=== PATIENT | female | born 1995 | race Two or more races ===

== ENCOUNTER 2019-01-30 08:03 | Inpatient (IN) | payer SELFPAY ==
[~2019-01-30] VITALS: Ht 157.5 cm; Wt 68.3 kg
[2019-01-30] MEDS ORDERED: IV NORMAL SALINE 1000ML BAG 1,000 ML IV SCH (08:23)
[2019-01-30] MEDS ORDERED: fentaNYL PF VIAL 100 MCG/2 ML VIAL IV ONE ×2 (08:30→10:00)
[2019-01-30] MEDS ORDERED: ONDANSETRON PF 4 MG/2 ML VIAL. IV ONE (08:30)
--- NOTE | 2019-01-30 08:32 | PHYS DOC ---
Adult General Chief Complaint Chief Complaint: FLANK PAIN HPI HPI Patient is a 23 year old female presented ER today for evaluation of right upper quadrant abdominal pain started last night. Patient also complaints of na usea, vomiting, diarrhea. Patient denies any fever, no chill. Patient had no previous medical problem. Patient denied taking any medication. Patient is not , she is not allergic to anything. Review of Systems Review of Systems Constitutional: Denies fever or chills [] Eyes: Denies change in visual acuity, redness, or eye pain [] HENT: Denies nasal congestion or sore throat [] Respiratory: Denies cough or shortness of breath [] Cardiovascular: No additional information not addressed in HPI [] GI: Positive for abdominal pain, nausea, vomiting, diarrhea [] : Denies dysuria or hematuria [] Musculoskeletal: Denies back pain or joint pain [] Integument: Denies rash or skin lesions [] Neurologic: Denies headache, focal weakness or sensory changes [] Endocrine: Denies polyuria or polydipsia [] All other systems were reviewed and found to be within normal limits, except as documented in this note. Current Medications Current Medications Current Medications Medications (Trade) Dose Ordered Sig/Kaykay Start Time Stop Time Status Last Admin Dose Admin Fentanyl Citrate (Fentanyl 2ml Vial) 50 mcg 1X ONCE 01/30/19 08:30 01/30/19 08:45 DC 01/30/19 08:51 50 MCG Ondansetron HCl (Zofran) 8 mg 1X ONCE 01/30/19 08:30 01/30/19 08:45 DC 01/30/19 08:50 8 MG Sodium Chloride 1,000 ml @ 1,000 mls/hr Q1H 01/30/19 08:23 01/30/19 09:22 DC 01/30/19 08:49 1,000 MLS/HR Allergies Allergies Allergies Coded Allergies Type Severity Reaction Last Updated Verified No Known Drug Allergies 01/30/19 No Physical Exam Physical Exam Constitutional: Well developed, well nourished, no acute distress, non-toxic appearance. [] HENT: Normocephalic, atraumatic, bilateral external ears normal, oropharynx moist, no oral exudates, nose normal. [] Eyes: PERRLA, EOMI, conjunctiva normal, no discharge. [] Neck: Normal range of motion, no tenderness, supple, no stridor. [] Cardiovascular:Heart rate regular rhythm, no murmur [] Lungs & Thorax: Bilateral breath sounds clear to auscultation [] Abdomen: Bowel sounds normal, soft, There is RUQ tenderness to palpation, no masses, no pulsatile masses. [] Skin: Warm, dry, no erythema, no rash. [] Back: No tenderness, no CVA tenderness. [] Extremities: No tenderness, no cyanosis, no clubbing, ROM intact, no edema. [] Neurologic: Alert and oriented X 3, normal motor function, normal sensory function, no focal deficits noted. [] Psychologic: Affect normal, judgement normal, mood normal. [] Current Patient Data Vital Signs Vital Signs Date Time Temp Pulse Resp B/P (MAP) Pulse Ox O2 Delivery O2 Flow Rate FiO2 01/30/19 09:30 50 12 93/49 (64) 100 Room Air 01/30/19 08:08 97.6 97.6 Lab Values Laboratory Tests Test 01/30/19 08:08 01/30/19 08:15 01/30/19 08:31 Urine Collection Type Unknown Urine Color Yellow Urine Clarity Turbid Urine pH 5.0 Urine Specific [place] >=1.030 Urine Protein Negative mg/dL (NEG-TRACE) Urine Glucose (UA) Negative mg/dL (NEG) Urine Ketones (Stick) Negative mg/dL (NEG) Urine Blood Large (NEG) Urine Nitrite Negative (NEG) Urine Bilirubin Negative (NEG) Urine Urobilinogen Dipstick 0.2 mg/dL (0.2 mg/dL) Urine Leukocyte Esterase Negative (NEG) Urine RBC 0 /HPF (0-2) Urine WBC 0 /HPF (0-4) Urine Squamous Epithelial Cells Mod /LPF Urine Amorphous Sediment Present /HPF Urine Bacteria 0 /HPF (0-FEW) Urine Mucus Mod /LPF POC Urine HCG, Qualitative Hcg negative (Negative) White Blood Count 14.0 x10^3/uL (4.0-11.0) H Red Blood Count 4.64 x10^6/uL (3.50-5.40) Hemoglobin 13.6 g/dL (12.0-15.5) Hematocrit 39.2 % (36.0-47.0) Mean Corpuscular Volume 84 fL (79-100) Mean Corpuscular Hemoglobin 29 pg (25-35) Mean Corpuscular Hemoglobin Concent 35 g/dL (31-37) Red Cell Distribution Width 12.6 % (11.5-14.5) Platelet Count 375 x10^3/uL (140-400) Neutrophils (%) (Auto) 80 % (31-73) H Lymphocytes (%) (Auto) 15 % (24-48) L Monocytes (%) (Auto) 4 % (0-9) Eosinophils (%) (Auto) 1 % (0-3) Basophils (%) (Auto) 0 % (0-3) Neutrophils # (Auto) 11.2 x10^3uL (1.8-7.7) H Lymphocytes # (Auto) 2.1 x10^3/uL (1.0-4.8) Monocytes # (Auto) 0.5 x10^3/uL (0.0-1.1) Eosinophils # (Auto) 0.2 x10^3/uL (0.0-0.7) Basophils # (Auto) 0.1 x10^3/uL (0.0-0.2) Sodium Level 139 mmol/L (136-145) Potassium Level 3.0 mmol/L (3.5-5.1) L Chloride Level 103 mmol/L (98-107) Carbon Dioxide Level 24 mmol/L (21-32) Anion Gap 12 (6-14) Blood Urea Nitrogen 12 mg/dL (7-20) Creatinine 0.8 mg/dL (0.6-1.0) Estimated GFR (Cockcroft-Gault) 89.7 BUN/Creatinine Ratio 15 (6-20) Glucose Level 118 mg/dL (70-99) H Calcium Level 9.4 mg/dL (8.5-10.1) Total Bilirubin 0.3 mg/dL (0.2-1.0) Aspartate Amino Transferase (AST) 14 U/L (15-37) L Alanine Aminotransferase (ALT) 19 U/L (14-59) Alkaline Phosphatase 91 U/L (46-116) Total Protein 9.1 g/dL (6.4-8.2) H Albumin 4.0 g/dL (3.4-5.0) Albumin/Globulin Ratio 0.8 (1.0-1.7) L Lipase 109 U/L (73-393) Laboratory Tests 01/30/19 08:31 Laboratory Tests 01/30/19 08:31 EKG EKG [] Radiology/Procedures Radiology/Procedures [facility] [address] [place] [address] IMAGING REPORT Signed PATIENT: JAY FOLEY ACCOUNT: [id number] : 1995 LOCATION: ER AGE: 23 SEX: F EXAM STATUS: REG ER ORD. PHYSICIAN: MENA MALCOLM DO REASON: RUQ ABDOMINAL PAIN PROCEDURE: ABDOMEN LTD ABDOMEN LTD History: Right upper quadrant abdominal pain Comparison: None. Findings: Multiple sonographic images of the abdomen are submitted. There is no abnormality of the visualized pancreas. Gallbladder is present, internal echogenicity. Reportedly there is a positive sonographic Guzman's sign. Gallbladder wall is not significantly thickened. Common bile duct is somewhat dilated about 0.7 cm, also small focus of echogenicity internally the which shadows likely due to choledocholithiasis. Right kidney measured 10.1 x 4.7 x 3.7 cm, no hydronephrosis. There is segmental visualization of the inferior vena cava. Hepatic echotexture is within normal limits, no focal hepatic lesion demonstrated. Right lobe of the liver measured 16.2 cm longitudinal. Impression: 1. There is cholelithiasis, reportedly positive sonographic Guzman's sign although no significant gallbladder wall thickening. Common bile duct is dilated about 0.7 cm, suspected choledocholithiasis. Electronically signed by: Kevin Hurt MD (01/30/2019 9:18 AM) [facility] DICTATED and SIGNED BY: KEVIN HURT MD DATE: 01/30/19917 Course & Med Decision Making Course & Med Decision Making Pertinent Labs and Imaging studies reviewed. (See chart for details) [] Dragon Disclaimer Dragon Disclaimer This electronic medical record was generated, in whole or in part, using a voice recognition dictation system. Departure Departure Impression: Primary Impression: Choledocholithiasis Additional Impression: Biliary colic Disposition: 09 ADMITTED INPATIENT Admitting Physician: Lisa Jewell Condition: STABLE Referrals: NO PCP (PCP) Problem Qualifiers MENA MALCOLM DO Jan 30, 2019 08:32
[2019-01-30 08:39] LABS: BASO # 0.1 x10^3/uL (0.0-0.2); BASO % 0 % (0-3); EOS # 0.2 x10^3/uL (0.0-0.7); EOS % 1 % (0-3); HEMATOCRIT 39.2 % (36.0-47.0); HEMOGLOBIN 13.6 g/dL (12.0-15.5); LYMPH # 2.1 x10^3/uL (1.0-4.8); LYMPH % 15 % (24-48); MEAN CORPUSCULAR HEMOGLOBIN 29 pg (25-35); MEAN CORPUSCULAR HGB CONC 35 g/dL (31-37); MEAN CORPUSCULAR VOLUME 84 fL (79-100); MONO # 0.5 x10^3/uL (0.0-1.1); MONO % 4 % (0-9); NEUT # 11.2 x10^3uL (1.8-7.7); NEUT % 80 % (31-73); PLATELET COUNT 375 x10^3/uL (140-400); RED BLOOD COUNT 4.64 x10^6/uL (3.50-5.40); RED CELL DISTRIBUTION WIDTH 12.6 % (11.5-14.5)
[2019-01-30 08:45] LABS: BILIRUBIN,URINE NEGATIVE (NEG); CLARITY,URINE TURBID; COLOR,URINE YELLOW; NITRITE,URINE NEGATIVE (NEG); PROTEIN,URINE NEGATIVE (NEG-TRACE); UROBILINOGEN,URINE 0.2 mg/dL (0.2 mg/dL)
[2019-01-30 08:47] LABS: CALCIUM 9.4 mg/dL (8.5-10.1); CREATININE 0.8 mg/dL (0.6-1.0); GFR 89.7
[2019-01-30 08:53] LABS: ALBUMIN/GLOBULIN RATIO 0.8 (1.0-1.7); TOTAL BILIRUBIN 0.3 mg/dL (0.2-1.0); TOTAL PROTEIN 9.1 g/dL (6.4-8.2)
[2019-01-30 08:55] LABS: BACTERIA,URINE 0 /HPF (0-FEW); RBC,URINE 0 /HPF (0-2); SQUAMOUS EPITHELIAL CELL,UR MOD /LPF; WBC,URINE 0 /HPF (0-4)
[2019-01-30 08:56] LABS: AMORPHOUS SEDIMENT,UR PRESENT /HPF
--- NOTE | 2019-01-30 09:20 | RAD ---
ABDOMEN LTD History: Right upper quadrant abdominal pain Comparison: None. Findings: Multiple sonographic images of the abdomen are submitted. There is no abnormality of the visualized pancreas. Gallbladder is present, internal echogenicity. Reportedly there is a positive sonographic Guzman's sign. Gallbladder wall is not significantly thickened. Common bile duct is somewhat dilated about 0.7 cm, also small focus of echogenicity internally the which shadows likely due to choledocholithiasis. Right kidney measured 10.1 x 4.7 x 3.7 cm, no hydronephrosis. There is segmental visualization of the inferior vena cava. Hepatic echotexture is within normal limits, no focal hepatic lesion demonstrated. Right lobe of the liver measured 16.2 cm longitudinal. Impression: 1. There is cholelithiasis, reportedly positive sonographic Guzman's sign although no significant gallbladder wall thickening. Common bile duct is dilated about 0.7 cm, suspected choledocholithiasis. Electronically signed by: Dariusz Johnson MD (01/30/2019 9:18 AM) [facility]
[2019-01-30] MEDS ORDERED: IV NORMAL SALINE 1000ML BAG 1,000 ML IV ONE (10:00)
--- NOTE | 2019-01-30 11:41 | PDOC1 ---
History and Physical Date of Admission: Date of Admission DATE: 01/30/19 TIME: 11:39 Chief Complaint: Problems: (1) Biliary colic (2) Choledocholithiasis Chief Complain: Severe abdominal pain History of Present Illness: HPI: Patient is a 23 year old female presented ER today for evaluation of right upper quadrant abdominal pain started last night. Patient also complaints of nausea, vomiting, diarrhea. Patient denies any fever, no chill. Patient had no previous medical problem. Patient denied taking any medication. Patient is not , she is not allergic to anything. Past Medical/Surgical History: PMH/PSH: Basically benign Allergies: Allergies: Coded Allergies: No Known Drug Allergies (Unverified , 01/30/19) Family History: Family History: Gallstones Social History: Social Hisoty: She does not drink smoke or take drugs she is Current Medications: Current Medications Current Medications Sodium Chloride 1,000 ml @ 1,000 mls/hr Q1H IV Last administered on 01/30/19at 08:49; Start 01/30/19 at 08:23; Stop 01/30/19 at 09:22; Status DC Ondansetron HCl (Zofran) 8 mg 1X ONCE IV Last administered on 01/30/19at 08:50; Start 01/30/19 at 08:30; Stop 01/30/19 at 08:45; Status DC Fentanyl Citrate (Fentanyl 2ml Vial) 50 mcg 1X ONCE IV Last administered on 01/30/19at 08:51; Start 01/30/19 at 08:30; Stop 01/30/19 at 08:45; Status DC Fentanyl Citrate (Fentanyl 2ml Vial) 50 mcg 1X ONCE IV Last administered on 01/30/19at 10:20; Start 01/30/19 at 10:00; Stop 01/30/19 at 10:01; Status DC Sodium Chloride 1,000 ml @ 1,000 mls/hr 1X ONCE IV Last administered on 01/30at 10:18; Start 01/30/19 at 10:00; Stop 01/30/19 at 10:59; Status DC Ondansetron HCl (Zofran) 4 mg PRN Q8HRS PRN IV NAUSEA/VOMITING; Start 01/30/19 at 10:00; Stop 01/31/19 at 09:59 Fentanyl Citrate (Fentanyl 2ml Vial) 50 mcg PRN Q2HRS PRN IV PAIN; Start 01/30/19 at 10:00; Stop 01/31/19 at 09:59 Sodium Chloride 1,000 ml @ 75 mls/hr [id number] IV ; Start 01/30/19 at 09:53; Stop 01/31/19 at 09:52 Cefazolin Sodium/ Dextrose 50 ml @ 100 mls/hr 1X PREOP IV ; Start 01/30/19 at 11:30; Stop 01/31/19 at 18:00 ROS: Review of Systems Review of System REVIEW OF SYSTEMS: GENERAL: Denies weakness SKIN: No bruising, hair changes or rashes. EYES: No blurred, double or loss of vision. NOSE AND THROAT: No history of nosebleeds, hoarseness or sore throat. HEART: No history of palpitations, chest pain or shortness of breath on exertion. LUNGS: Denies cough, hemoptysis, wheezing or shortness of breath. GASTROINTESTINAL: She complains of severe abdominal pain GENITOURINARY: No history of frequency, urgency, hesitancy or nocturia. NEUROLOGIC: Denies history of numbness, tingling, tremor or weakness. PSYCHIATRIC: No history of panic, anxiety or depression. ENDOCRINE: No history of heat or cold intolerance, polyuria or polydipsia. EXTREMITIES: Denies muscle weakness, joint pain, pain on walking or stiffness. Physical Exam: Vital Signs: Vital Signs Date Time Temp Pulse Resp B/P (MAP) Pulse Ox O2 Delivery O2 Flow Rate FiO2 01/30/19 10:20 12 100 Room Air 01/30/19 10:00 68 90/47 (61) 01/30/19 08:08 97.6 97.6 Physcial Exam: GEN.: No apparent distress. Alert and oriented. HEENT: Head is normocephalic, atraumatic NECK: Supple, no JVD LUNGS: Clear to auscultation without rhonchi or wheezing HEART: RRR, S1, S2 present. Peripheral pulses intact ABDOMEN: Severely tender to palpation with severe pain EXTREMITIES: Without any cyanosis, clubbing, or edema. Pedal pulses intact NEUROLOGIC: Normal speech, normal tone. A&O x 3 PSYCHIATRIC: Normal affect, normal mood. Stable SKIN: No ulcerations or rashes Labs: Labs: Laboratory Tests Test 01/30/19 08:08 01/30/19 08:15 01/30/19 08:31 Urine Collection Type Unknown Urine Color Yellow Urine Clarity Turbid Urine pH 5.0 Urine Specific [place] >=1.030 Urine Protein Negative mg/dL (NEG-TRACE) Urine Glucose (UA) Negative mg/dL (NEG) Urine Ketones (Stick) Negative mg/dL (NEG) Urine Blood Large (NEG) Urine Nitrite Negative (NEG) Urine Bilirubin Negative (NEG) Urine Urobilinogen Dipstick 0.2 mg/dL (0.2 mg/dL) Urine Leukocyte Esterase Negative (NEG) Urine RBC 0 /HPF (0-2) Urine WBC 0 /HPF (0-4) Urine Squamous Epithelial Cells Mod /LPF Urine Amorphous Sediment Present /HPF Urine Bacteria 0 /HPF (0-FEW) Urine Mucus Mod /LPF Bedside Urine HCG, Qualitative Hcg negative (Negative) White Blood Count 14.0 x10^3/uL (4.0-11.0) Red Blood Count 4.64 x10^6/uL (3.50-5.40) Hemoglobin 13.6 g/dL (12.0-15.5) Hematocrit 39.2 % (36.0-47.0) Mean Corpuscular Volume 84 fL (79-100) Mean Corpuscular Hemoglobin 29 pg (25-35) Mean Corpuscular Hemoglobin Concent 35 g/dL (31-37) Red Cell Distribution Width 12.6 % (11.5-14.5) Platelet Count 375 x10^3/uL (140-400) Neutrophils (%) (Auto) 80 % (31-73) Lymphocytes (%) (Auto) 15 % (24-48) Monocytes (%) (Auto) 4 % (0-9) Eosinophils (%) (Auto) 1 % (0-3) Basophils (%) (Auto) 0 % (0-3) Neutrophils # (Auto) 11.2 x10^3uL (1.8-7.7) Lymphocytes # (Auto) 2.1 x10^3/uL (1.0-4.8) Monocytes # (Auto) 0.5 x10^3/uL (0.0-1.1) Eosinophils # (Auto) 0.2 x10^3/uL (0.0-0.7) Basophils # (Auto) 0.1 x10^3/uL (0.0-0.2) Sodium Level 139 mmol/L (136-145) Potassium Level 3.0 mmol/L (3.5-5.1) Chloride Level 103 mmol/L (98-107) Carbon Dioxide Level 24 mmol/L (21-32) Anion Gap 12 (6-14) Blood Urea Nitrogen 12 mg/dL (7-20) Creatinine 0.8 mg/dL (0.6-1.0) Estimated GFR (Cockcroft-Gault) 89.7 BUN/Creatinine Ratio 15 (6-20) Glucose Level 118 mg/dL (70-99) Calcium Level 9.4 mg/dL (8.5-10.1) Total Bilirubin 0.3 mg/dL (0.2-1.0) Aspartate Amino Transf (AST/SGOT) 14 U/L (15-37) Alanine Aminotransferase (ALT/SGPT) 19 U/L (14-59) Alkaline Phosphatase 91 U/L (46-116) Total Protein 9.1 g/dL (6.4-8.2) Albumin 4.0 g/dL (3.4-5.0) Albumin/Globulin Ratio 0.8 (1.0-1.7) Lipase 109 U/L (73-393) Laboratory Tests Test 01/30/19 08:08 01/30/19 08:15 01/30/19 08:31 Urine Collection Type Unknown Urine Color Yellow Urine Clarity Turbid Urine pH 5.0 Urine Specific [place] >=1.030 Urine Protein Negative mg/dL (NEG-TRACE) Urine Glucose (UA) Negative mg/dL (NEG) Urine Ketones (Stick) Negative mg/dL (NEG) Urine Blood Large (NEG) Urine Nitrite Negative (NEG) Urine Bilirubin Negative (NEG) Urine Urobilinogen Dipstick 0.2 mg/dL (0.2 mg/dL) Urine Leukocyte Esterase Negative (NEG) Urine RBC 0 /HPF (0-2) Urine WBC 0 /HPF (0-4) Urine Squamous Epithelial Cells Mod /LPF Urine Amorphous Sediment Present /HPF Urine Bacteria 0 /HPF (0-FEW) Urine Mucus Mod /LPF Bedside Urine HCG, Qualitative Hcg negative (Negative) White Blood Count 14.0 x10^3/uL (4.0-11.0) Red Blood Count 4.64 x10^6/uL (3.50-5.40) Hemoglobin 13.6 g/dL (12.0-15.5) Hematocrit 39.2 % (36.0-47.0) Mean Corpuscular Volume 84 fL (79-100) Mean Corpuscular Hemoglobin 29 pg (25-35) Mean Corpuscular Hemoglobin Concent 35 g/dL (31-37) Red Cell Distribution Width 12.6 % (11.5-14.5) Platelet Count 375 x10^3/uL (140-400) Neutrophils (%) (Auto) 80 % (31-73) Lymphocytes (%) (Auto) 15 % (24-48) Monocytes (%) (Auto) 4 % (0-9) Eosinophils (%) (Auto) 1 % (0-3) Basophils (%) (Auto) 0 % (0-3) Neutrophils # (Auto) 11.2 x10^3uL (1.8-7.7) Lymphocytes # (Auto) 2.1 x10^3/uL (1.0-4.8) Monocytes # (Auto) 0.5 x10^3/uL (0.0-1.1) Eosinophils # (Auto) 0.2 x10^3/uL (0.0-0.7) Basophils # (Auto) 0.1 x10^3/uL (0.0-0.2) Sodium Level 139 mmol/L (136-145) Potassium Level 3.0 mmol/L (3.5-5.1) Chloride Level 103 mmol/L (98-107) Carbon Dioxide Level 24 mmol/L (21-32) Anion Gap 12 (6-14) Blood Urea Nitrogen 12 mg/dL (7-20) Creatinine 0.8 mg/dL (0.6-1.0) Estimated GFR (Cockcroft-Gault) 89.7 BUN/Creatinine Ratio 15 (6-20) Glucose Level 118 mg/dL (70-99) Calcium Level 9.4 mg/dL (8.5-10.1) Total Bilirubin 0.3 mg/dL (0.2-1.0) Aspartate Amino Transf (AST/SGOT) 14 U/L (15-37) Alanine Aminotransferase (ALT/SGPT) 19 U/L (14-59) Alkaline Phosphatase 91 U/L (46-116) Total Protein 9.1 g/dL (6.4-8.2) Albumin 4.0 g/dL (3.4-5.0) Albumin/Globulin Ratio 0.8 (1.0-1.7) Lipase 109 U/L (73-393) Images: Images Ultrasound shows gallstones Assessment/Plan Assessment/Plan Symptomatic gallstones with choledocholithiasis Plan Admit the patient consult general surgery and GI when necessary Zofran when necessary narcotics DVT prophylaxis full code home meds MARY CARMEN HOLLIDAY III DO Jan 30, 2019 11:41
[2019-01-30 11:56] VITALS: BP 106/64
[2019-01-30] MEDS ORDERED: ceFAZolin 2GM PREMIX 2 GM/50 ML BAG IV ONE (12:00)
--- NOTE | 2019-01-30 12:22 | PDOC2 ---
CONSULT Date of Consult Date of Consult DATE: 01/30/19 TIME: 12:13 Reason for Consult Reason for Consult: Calculous cholecystitis Referring Physician Referring Physician: Best Identification/Chief Complaint Chief Complaint RUQ pain Source Source: Chart review, Patient History of Present Illness Reason for Visit: 23 yo F with c/o RUQ pain with N/V/D. Presents to ER with above c/o. Pt still with these c/o. Past Medical History Cardiovascular: No pertinent hx Past Surgical History Past Surgical History: No pertinent history Family History Family History: No Significant Social History No ALCOHOL: none Current Problem List Problem List Problems Medical Problems: (1) Biliary colic Status: Acute (2) Choledocholithiasis Status: Acute Current Medications Current Medications Current Medications Sodium Chloride 1,000 ml @ 1,000 mls/hr Q1H IV Last administered on 01/30/19at 08:49; Start 01/30/19 at 08:23; Stop 01/30/19 at 09:22; Status DC Ondansetron HCl (Zofran) 8 mg 1X ONCE IV Last administered on 01/30/19at 08:50; Start 01/30/19 at 08:30; Stop 01/30/19 at 08:45; Status DC Fentanyl Citrate (Fentanyl 2ml Vial) 50 mcg 1X ONCE IV Last administered on 01/30/19at 08:51; Start 01/30/19 at 08:30; Stop 01/30/19 at 08:45; Status DC Fentanyl Citrate (Fentanyl 2ml Vial) 50 mcg 1X ONCE IV Last administered on 01/30/19at 10:20; Start 01/30/19 at 10:00; Stop 01/30/19 at 10:01; Status DC Sodium Chloride 1,000 ml @ 1,000 mls/hr 1X ONCE IV Last administered on 01/30/19at 10:18; Start 01/30/19 at 10:00; Stop 01/30/19 at 10:59; Status DC Ondansetron HCl (Zofran) 4 mg PRN Q8HRS PRN IV NAUSEA/VOMITING; Start 01/30/19 at 10:00; Stop 01/31/19 at 09:59 Fentanyl Citrate (Fentanyl 2ml Vial) 50 mcg PRN Q2HRS PRN IV PAIN; Start 01/30/19 at 10:00; Stop 01/31/19 at 09:59 Sodium Chloride 1,000 ml @ 75 mls/hr [id number] IV ; Start 01/30/19 at 09:53; Stop 01/31/19 at 09:52 Cefazolin Sodium/ Dextrose 50 ml @ 100 mls/hr 1X PREOP IV ; Start 01/30/19 at 11:30; Stop 01/31/19 at 18:00 Allergies Allergies: Coded Allergies: No Known Drug Allergies (Unverified , 01/30/19) ROS Gastrointestinal: Yes Nausea, Yes Vomiting, Yes Abdominal Pain Physical Exam General: Alert, Oriented X3, Cooperative, mild distress HEENT: Atraumatic Lungs: Normal air movement Abdomen: Soft, Other (mild TTP RUQ) Extremities: No clubbing, No cyanosis Skin: No rashes, No breakdown Neuro: Normal speech, Sensation intact Psych/Mental Status: Mental status NL, Mood NL Vitals VITALS Vital Signs Date Time Temp Pulse Resp B/P (MAP) Pulse Ox O2 Delivery O2 Flow Rate FiO2 01/30/19 10:20 12 100 Room Air 01/30/19 10:00 68 90/47 (61) 01/30/19 08:08 97.6 97.6 Labs Labs Laboratory Tests Test 01/30/19 08:08 01/30/19 08:15 01/30/19 08:31 Urine Collection Type Unknown Urine Color Yellow Urine Clarity Turbid Urine pH 5.0 Urine Specific [place] >=1.030 Urine Protein Negative mg/dL (NEG-TRACE) Urine Glucose (UA) Negative mg/dL (NEG) Urine Ketones (Stick) Negative mg/dL (NEG) Urine Blood Large (NEG) Urine Nitrite Negative (NEG) Urine Bilirubin Negative (NEG) Urine Urobilinogen Dipstick 0.2 mg/dL (0.2 mg/dL) Urine Leukocyte Esterase Negative (NEG) Urine RBC 0 /HPF (0-2) Urine WBC 0 /HPF (0-4) Urine Squamous Epithelial Cells Mod /LPF Urine Amorphous Sediment Present /HPF Urine Bacteria 0 /HPF (0-FEW) Urine Mucus Mod /LPF Bedside Urine HCG, Qualitative Hcg negative (Negative) White Blood Count 14.0 x10^3/uL (4.0-11.0) Red Blood Count 4.64 x10^6/uL (3.50-5.40) Hemoglobin 13.6 g/dL (12.0-15.5) Hematocrit 39.2 % (36.0-47.0) Mean Corpuscular Volume 84 fL (79-100) Mean Corpuscular Hemoglobin 29 pg (25-35) Mean Corpuscular Hemoglobin Concent 35 g/dL (31-37) Red Cell Distribution Width 12.6 % (11.5-14.5) Platelet Count 375 x10^3/uL (140-400) Neutrophils (%) (Auto) 80 % (31-73) Lymphocytes (%) (Auto) 15 % (24-48) Monocytes (%) (Auto) 4 % (0-9) Eosinophils (%) (Auto) 1 % (0-3) Basophils (%) (Auto) 0 % (0-3) Neutrophils # (Auto) 11.2 x10^3uL (1.8-7.7) Lymphocytes # (Auto) 2.1 x10^3/uL (1.0-4.8) Monocytes # (Auto) 0.5 x10^3/uL (0.0-1.1) Eosinophils # (Auto) 0.2 x10^3/uL (0.0-0.7) Basophils # (Auto) 0.1 x10^3/uL (0.0-0.2) Sodium Level 139 mmol/L (136-145) Potassium Level 3.0 mmol/L (3.5-5.1) Chloride Level 103 mmol/L (98-107) Carbon Dioxide Level 24 mmol/L (21-32) Anion Gap 12 (6-14) Blood Urea Nitrogen 12 mg/dL (7-20) Creatinine 0.8 mg/dL (0.6-1.0) Estimated GFR (Cockcroft-Gault) 89.7 BUN/Creatinine Ratio 15 (6-20) Glucose Level 118 mg/dL (70-99) Calcium Level 9.4 mg/dL (8.5-10.1) Total Bilirubin 0.3 mg/dL (0.2-1.0) Aspartate Amino Transf (AST/SGOT) 14 U/L (15-37) Alanine Aminotransferase (ALT/SGPT) 19 U/L (14-59) Alkaline Phosphatase 91 U/L (46-116) Total Protein 9.1 g/dL (6.4-8.2) Albumin 4.0 g/dL (3.4-5.0) Albumin/Globulin Ratio 0.8 (1.0-1.7) Lipase 109 U/L (73-393) Laboratory Tests Test 01/30/19 08:08 01/30/19 08:15 01/30/19 08:31 Urine Collection Type Unknown Urine Color Yellow Urine Clarity Turbid Urine pH 5.0 Urine Specific [place] >=1.030 Urine Protein Negative mg/dL (NEG-TRACE) Urine Glucose (UA) Negative mg/dL (NEG) Urine Ketones (Stick) Negative mg/dL (NEG) Urine Blood Large (NEG) Urine Nitrite Negative (NEG) Urine Bilirubin Negative (NEG) Urine Urobilinogen Dipstick 0.2 mg/dL (0.2 mg/dL) Urine Leukocyte Esterase Negative (NEG) Urine RBC 0 /HPF (0-2) Urine WBC 0 /HPF (0-4) Urine Squamous Epithelial Cells Mod /LPF Urine Amorphous Sediment Present /HPF Urine Bacteria 0 /HPF (0-FEW) Urine Mucus Mod /LPF Bedside Urine HCG, Qualitative Hcg negative (Negative) White Blood Count 14.0 x10^3/uL (4.0-11.0) Red Blood Count 4.64 x10^6/uL (3.50-5.40) Hemoglobin 13.6 g/dL (12.0-15.5) Hematocrit 39.2 % (36.0-47.0) Mean Corpuscular Volume 84 fL (79-100) Mean Corpuscular Hemoglobin 29 pg (25-35) Mean Corpuscular Hemoglobin Concent 35 g/dL (31-37) Red Cell Distribution Width 12.6 % (11.5-14.5) Platelet Count 375 x10^3/uL (140-400) Neutrophils (%) (Auto) 80 % (31-73) Lymphocytes (%) (Auto) 15 % (24-48) Monocytes (%) (Auto) 4 % (0-9) Eosinophils (%) (Auto) 1 % (0-3) Basophils (%) (Auto) 0 % (0-3) Neutrophils # (Auto) 11.2 x10^3uL (1.8-7.7) Lymphocytes # (Auto) 2.1 x10^3/uL (1.0-4.8) Monocytes # (Auto) 0.5 x10^3/uL (0.0-1.1) Eosinophils # (Auto) 0.2 x10^3/uL (0.0-0.7) Basophils # (Auto) 0.1 x10^3/uL (0.0-0.2) Sodium Level 139 mmol/L (136-145) Potassium Level 3.0 mmol/L (3.5-5.1) Chloride Level 103 mmol/L (98-107) Carbon Dioxide Level 24 mmol/L (21-32) Anion Gap 12 (6-14) Blood Urea Nitrogen 12 mg/dL (7-20) Creatinine 0.8 mg/dL (0.6-1.0) Estimated GFR (Cockcroft-Gault) 89.7 BUN/Creatinine Ratio 15 (6-20) Glucose Level 118 mg/dL (70-99) Calcium Level 9.4 mg/dL (8.5-10.1) Total Bilirubin 0.3 mg/dL (0.2-1.0) Aspartate Amino Transf (AST/SGOT) 14 U/L (15-37) Alanine Aminotransferase (ALT/SGPT) 19 U/L (14-59) Alkaline Phosphatase 91 U/L (46-116) Total Protein 9.1 g/dL (6.4-8.2) Albumin 4.0 g/dL (3.4-5.0) Albumin/Globulin Ratio 0.8 (1.0-1.7) Lipase 109 U/L (73-393) Images Images US with evidence of calculous cholecystitis Assessment/Plan Assessment/Plan Calculous cholecystitis TO OR for laparoscopic cholecystectomy with cholangiogram, possible open R/R/B/A d/w pt. Risks, including, but not limited to: bleeding, infection, damage to surrounding structures, risk of anesthesia. She appears to understand, her questions are answered and she elects to proceed. Thanks for consult! ADDY TEJEDA MD Jan 30, 2019 12:22
[2019-01-30] MEDS ORDERED: GLYCOPYRROLATE 1 MG/5 ML VIAL. ONE (12:36)
[2019-01-30] MEDS ORDERED: MIDAZOLAM HCL/PF 2 MG/2 ML VIAL. ONE (12:36)
[2019-01-30] MEDS ORDERED: fentaNYL PF VIAL 100 MCG/2 ML VIAL ONE (12:36)
[2019-01-30] MEDS ORDERED: PROPOFOL 20 ML IV ONE (12:36)
[2019-01-30] MEDS ORDERED: KETOROLAC 30 MG/ML INJ FOR OR. INJ ONE (12:36)
[2019-01-30] MEDS ORDERED: ONDANSETRON PF 4 MG/2 ML VIAL. ONE (12:36)
[2019-01-30] MEDS ORDERED: SEVOFLURANE 61 TO 120 MINUTES. IH ONE (12:36)
[2019-01-30] MEDS ORDERED: ROCURONIUM 50 MG/5 ML VIAL. ONE (12:36)
[2019-01-30] MEDS ORDERED: LIDOCAINE 2% PF 5 ML VIAL. ONE (12:37)
[2019-01-30] MEDS ORDERED: DEXAMETHASONE SOD PHOS 4 MG/ML VIAL ONE (12:43)
[2019-01-30] MEDS: fentaNYL PF VIAL 100 MCG/2 ML VIAL IV PRN ×3 (12:45→21:27)
[2019-01-30] MEDS: IV NORMAL SALINE 1000ML BAG 1,000 ML IV SCH (12:45)
[2019-01-30] MEDS: ONDANSETRON PF 4 MG/2 ML VIAL. IV PRN ×2 (12:45→16:13)
[2019-01-30] MEDS ORDERED: BUPIVAC MPF-EPI 0.5%-1:200000 30 ML VIAL. ONE (12:51)
[2019-01-30] MEDS ORDERED: IOHEXOL 300 MG/ML 50 ML VIAL. ONE (12:52)
[2019-01-30] MEDS ORDERED: SURGICEL HEMOSTAT 2X3 EACH. ONE (12:52)
[2019-01-30] MEDS ORDERED: BISACODYL 10 MG SUPP.RECT. ONE (12:52)
[2019-01-30] MEDS ORDERED: NEOSTIGMINE METHYLSULFATE 5 MG/5 ML SYRINGE. ONE (14:13)
[2019-01-30] MEDS ORDERED: PHENYLEPHRINE in 0.9% NACL PF 1 MG/10 ML SYRINGE. IV ONE (14:30)
[2019-01-30] MEDS ORDERED: ESMOLOL 100 MG/10 ML VIAL. IVP ONE (14:47)
[2019-01-30] MEDS ORDERED: DEXTROSE 50% 25 GM / 50ML DISP.SYRIN. IV PRN (16:00)
[2019-01-30] MEDS ORDERED: ONDANSETRON PF 4 MG/2 ML VIAL. IV PRN (16:00)
[2019-01-30] MEDS ORDERED: 0.9 % SODIUM CHLORIDE 10 ML DISP.SYRIN. IV PRN (16:00)
--- NOTE | 2019-01-30 16:06 | PDOC4 ---
OPERATIVE NOTE Date: Date: Jan 30, 2019 Pre-Op Diagnosis: Calculous cholecystitis Post-Op Diagnosis: same, choledocholithiasis Procedure Performed: laparoscopic cholecystectomy with cholangiogram, common bile duct exploration Surgeon: Papa Tejeda Anesthesia Type: GETA plus local Blood Loss: minimal Specimans Obtained: gallbladder Findings: Distended gallbladder with acute inflammation, cholangiogram with choledocholithiasis Complications: none Operative Note: After obtaining informed consent, patient was taken to OR, induced under GETA and prepped in the usual fashion. 5 mm port placed umbilical and RUQ, 12 port placed epigastric, all under laparoscopic guidance. Abdominal cavity was explored and otherwise unremarkable. Gallbladder was acutely inflamed. Attempts at grasping it were unsuccessful secondary to distention. It was aspirated bile. Adhesions were dissected out and critical view was achieved. Cystic artery ligated with clips. Cholangiogram was obtained via cystic duct and demonstrated distal common bile duct stone with obstruction. 6 James balloon was used to explore duct and dislodged stone into duodenum. Final cholangiogram demonstrated clearance of duct. Cystic duct ligated with clips and hemolok. Gallbladder taken off fossa using cautery, placed in bag, delivered and sent to pathology for evaluation. Copious irrigation. No evide nce of bleeding or other pathology at time of closure. Ports removed without bleeding. Fascia repaired with 0 vicryl. Skin repaired with 4 0 monocryl. Dressing placed. Patient tolerated procedure well and sent to PACU in stable condition. All counts correct. No immediate complications. Wound class is 3. ADDY TEJEDA MD Jan 30, 2019 16:06
[2019-01-30] MEDS: IV RINGERS,LACTATED 1000ML 1,000 ML IV SCH (16:36)
[2019-01-30 16:45] VITALS: BP 109/67
[2019-01-30 18:00] VITALS: BP 106/63
[2019-01-30 18:30] VITALS: BP 113/63
[2019-01-30 19:00] VITALS: BP 100/61
--- NOTE | 2019-01-30 19:21 | RAD ---
CHOLANGIOGRAM INTRAOPERATIVE History: Cholecystectomy Comparison: Ultrasound earlier the same day. Findings: Intraprocedural views from a cholangiogram are submitted. Exam was performed by interposition. On first couple of the initial images, there is appearance of small filling defect in the distal common bile duct, not as convincingly visualized on more delayed images although this area partially obscured by contrast in the duodenum. 1.3 minutes, 8 images Impression: 1. On first couple of the initial images, there is appearance of small filling defect in the distal common bile duct although not as convincingly visualized on more delayed images, somewhat limited evaluation as area partially obscured by contrast in the duodenum. Electronically signed by: Dariusz Johnson MD (01/30/2019 7:18 PM) [facility]
[2019-01-30] MEDS: DOCUSATE SODIUM 100 MG CAPSULE. PO SCH (21:22)
[2019-01-30 23:00] VITALS: BP 102/63
[2019-01-30] MEDS: HYDROcodone/APAP 5/325MG 1 TAB TABLET PO PRN (23:05)
[2019-01-31] MEDS: fentaNYL PF VIAL 100 MCG/2 ML VIAL IV PRN ×2 (01:55→06:30)
[2019-01-31 02:44] VITALS: BP 93/48
[2019-01-31] MEDS: HYDROcodone/APAP 5/325MG 1 TAB TABLET PO PRN ×4 (06:29→20:01)
[2019-01-31 07:00] VITALS: BP 103/62
[2019-01-31] MEDS: IV NORMAL SALINE 1000ML BAG 1,000 ML IV SCH (07:17)
[2019-01-31] MEDS: IV RINGERS,LACTATED 1000ML 1,000 ML IV SCH ×2 (07:18→12:15)
[2019-01-31] MEDS: ENOXAPARIN 40 MG/0.4 ML SYRINGE. SQ SCH (08:00)
[2019-01-31] MEDS: DOCUSATE SODIUM 100 MG CAPSULE. PO SCH ×2 (08:39→20:05)
--- NOTE | 2019-01-31 08:39 | NUR ---
Pt up ad neelima, often walking around room and going to bathroom. Lovenox not administered. Colace held, Pt had loose stools last night.
[2019-01-31 08:45] LABS: BASO % 1 % (0-3); EOS # 0.1 x10^3/uL (0.0-0.7); EOS % 1 % (0-3); HEMATOCRIT 36.3 % (36.0-47.0); HEMOGLOBIN 12.1 g/dL (12.0-15.5); LYMPH # 2.4 x10^3/uL (1.0-4.8); LYMPH % 30 % (24-48); MEAN CORPUSCULAR HEMOGLOBIN 28 pg (25-35); MEAN CORPUSCULAR HGB CONC 33 g/dL (31-37); MEAN CORPUSCULAR VOLUME 85 fL (79-100); MONO # 0.5 x10^3/uL (0.0-1.1); MONO % 6 % (0-9); NEUT % 63 % (31-73); PLATELET COUNT 336 x10^3/uL (140-400); RED BLOOD COUNT 4.27 x10^6/uL (3.50-5.40); RED CELL DISTRIBUTION WIDTH 12.9 % (11.5-14.5)
[2019-01-31 09:02] LABS: CALCIUM 8.9 mg/dL (8.5-10.1); CREATININE 0.7 mg/dL (0.6-1.0); DIRECT BILIRUBIN 1.1 mg/dL (0.0-0.2); GFR 104.6; POTASSIUM 3.4 mmol/L (3.5-5.1); TOTAL BILIRUBIN 1.5 mg/dL (0.2-1.0); TOTAL PROTEIN 7.3 g/dL (6.4-8.2)
--- NOTE | 2019-01-31 10:36 | PDOC2 ---
GI CONSULT Reason For Consult: choledocholithiasis HPI: HPI: 23 yo F with c/o RUQ pain with N/V/D. Presents to ER with above c/o. Pt still with these c/o. L/C with IOC yesterday with choledocholithiasis. Labs today with tB 1.5, AST 571, ALT 590, AP 151. PMH: PMH: Past Medical History Cardiovascular: No pertinent hx Past Surgical History Past Surgical History: No pertinent history Family History Family History: No Significant Social History No ALCOHOL: none Current Problem List Problem List Problems Medical Problems: (1) Biliary colic Status: Acute (2) Choledocholithiasis Status: Acute Current Medications Current Medications Current Medications Sodium Chloride 1,000 ml @ 1,000 mls/hr Q1H IV Last administered on 01/30/19at 08:49; Start 01/30/19 at 08:23; Stop 01/30/19 at 09:22; Status DC Ondansetron HCl (Zofran) 8 mg 1X ONCE IV Last administered on 01/30/19at 08:50; Start 01/30/19 at 08:30; Stop 01/30/19 at 08:45; Status DC Fentanyl Citrate (Fentanyl 2ml Vial) 50 mcg 1X ONCE IV Last administered on 01/30/19at 08:51; Start 01/30/19 at 08:30; Stop 01/30/19 at 08:45; Status DC Fentanyl Citrate (Fentanyl 2ml Vial) 50 mcg 1X ONCE IV Last administered on 01/30/19at 10:20; Start 01/30/19 at 10:00; Stop 01/30/19 at 10:01; Status DC Sodium Chloride 1,000 ml @ 1,000 mls/hr 1X ONCE IV Last administered on 01/30/19at 10:18; Start 01/30/19 at 10:00; Stop 01/30/19 at 10:59; Status DC Ondansetron HCl (Zofran) 4 mg PRN Q8HRS PRN IV NAUSEA/VOMITING; Start 01/30/19 at 10:00; Stop 01/31/19 at 09:59 Fentanyl Citrate (Fentanyl 2ml Vial) 50 mcg PRN Q2HRS PRN IV PAIN; Start 01/30/19 at 10:00; Stop 01/31/19 at 09:59 Sodium Chloride 1,000 ml @ 75 mls/hr [id number] IV ; Start 01/30/19 at 09:53; Stop 01/31/19 at 09:52 Cefazolin Sodium/ Dextrose 50 ml @ 100 mls/hr 1X PREOP IV ; Start 01/30/19 at 11:30; Stop 01/31/19 at 18:00 Allergies Allergies: Coded Allergies: No Known Drug Allergies (Unverified , 01/30/19) Social History: Smoke: No ALCOHOL: none ROS: ROS Gastrointestinal: Yes Nausea, Yes Vomiting, Yes Abdominal Pain VItals: Vitals: Vital Signs Date Time Temp Pulse Resp B/P (MAP) Pulse Ox O2 Delivery O2 Flow Rate FiO2 01/31/19 08:05 Room Air 01/31/19 07:00 98.1 59 22 103/62 (76) 99 98.1 01/30/19 15:48 10 Labs: Labs: Laboratory Tests Test 01/31/19 08:15 White Blood Count 8.0 x10^3/uL (4.0-11.0) Red Blood Count 4.27 x10^6/uL (3.50-5.40) Hemoglobin 12.1 g/dL (12.0-15.5) Hematocrit 36.3 % (36.0-47.0) Mean Corpuscular Volume 85 fL (79-100) Mean Corpuscular Hemoglobin 28 pg (25-35) Mean Corpuscular Hemoglobin Concent 33 g/dL (31-37) Red Cell Distribution Width 12.9 % (11.5-14.5) Platelet Count 336 x10^3/uL (140-400) Neutrophils (%) (Auto) 63 % (31-73) Lymphocytes (%) (Auto) 30 % (24-48) Monocytes (%) (Auto) 6 % (0-9) Eosinophils (%) (Auto) 1 % (0-3) Basophils (%) (Auto) 1 % (0-3) Neutrophils # (Auto) 5.0 x10^3uL (1.8-7.7) Lymphocytes # (Auto) 2.4 x10^3/uL (1.0-4.8) Monocytes # (Auto) 0.5 x10^3/uL (0.0-1.1) Eosinophils # (Auto) 0.1 x10^3/uL (0.0-0.7) Basophils # (Auto) 0.0 x10^3/uL (0.0-0.2) Sodium Level 142 mmol/L (136-145) Potassium Level 3.4 mmol/L (3.5-5.1) Chloride Level 106 mmol/L (98-107) Carbon Dioxide Level 25 mmol/L (21-32) Anion Gap 11 (6-14) Blood Urea Nitrogen 7 mg/dL (7-20) Creatinine 0.7 mg/dL (0.6-1.0) Estimated GFR (Cockcroft-Gault) 104.6 Glucose Level 115 mg/dL (70-99) Calcium Level 8.9 mg/dL (8.5-10.1) Total Bilirubin 1.5 mg/dL (0.2-1.0) Direct Bilirubin 1.1 mg/dL (0.0-0.2) Aspartate Amino Transf (AST/SGOT) 571 U/L (15-37) Alanine Aminotransferase (ALT/SGPT) 590 U/L (14-59) Alkaline Phosphatase 151 U/L (46-116) Total Protein 7.3 g/dL (6.4-8.2) Albumin 3.0 g/dL (3.4-5.0) Amylase Level 42 U/L (25-115) Lipase 117 U/L (73-393) Imaging: Imaging: Signed PATIENT: SANDRA COSME ACCOUNT: [id number] : 1995 LOCATION: [address] [place] [address] AGE: 23 SEX: F EXAM STATUS: ADM IN ORD. PHYSICIAN: MARY CARMEN HOLLIDAY III DO REASON: LAPAROSCOPIC CHOLECYSTECTOMY W/ GRAMS PROCEDURE: CHOLANGIOGRAM INTRAOPERATIVE CHOLANGIOGRAM INTRAOPERATIVE History: Cholecystectomy Comparison: Ultrasound earlier the same day. Findings: Intraprocedural views from a cholangiogram are submitted. Exam was performed by interposition. On first couple of the initial images, there is appearance of small filling defect in the distal common bile duct, not as convincingly visualized on more delayed images although this area partially obscured by contrast in the duodenum. 1.3 minutes, 8 images Impression: 1. On first couple of the initial images, there is appearance of small filling defect in the distal common bile duct although not as convincingly visualized on more delayed images, somewhat limited evaluation as area partially obscured by contrast in the duodenum. Electronically signed by: Dariusz Johnson MD (01/30/2019 7:18 PM) [facility] PE: Physical Exam General: Alert, Oriented X3, Cooperative, mild distress HEENT: Atraumatic Lungs: Normal air movement Abdomen: Soft, Other (mild TTP RUQ) Extremities: No clubbing, No cyanosis Skin: No rashes, No breakdown Neuro: Normal speech, Sensation intact Psych/Mental Status: Mental status NL, Mood NL A/P: A/P: A 1) Choledocholithiasis 2)Elevated bili 3) Calculous cholecystitis P 1) ERCP. D/w patient in [place]. Timing to be discussed with DR Juárez. d/w nursing DAPHNE LOBATO MD Jan 31, 2019 10:36
[2019-01-31 11:00] VITALS: BP 111/76
[2019-01-31] MEDS: MORPHINE SULFATE 2 MG/ML VIAL. IV PRN ×3 (11:03→20:02)
--- NOTE | 2019-01-31 13:17 | PDOC ---
PROGRESS NOTES Chief Complaint Chief Complaint RUQ pain History of Present Illness History of Present Illness Patient was resting comfortably in bed today. She is a Niuean speaker. She is feeling much better today. POD1, 3 incisions. Vitals Vitals Vital Signs Date Time Temp Pulse Resp B/P (MAP) Pulse Ox O2 Delivery O2 Flow Rate FiO2 01/31/19 12:18 Room Air 01/31/19 11:00 98.0 68 22 111/76 (88) 100 98.0 01/30/19 15:48 10 Physical Exam General: Alert, Oriented X3, Cooperative, No acute distress Heart: Regular rate, Normal S1, Normal S2, No murmurs Lungs: Clear (No wheezes, rales, or rhonchi) Abdomen: Soft, No tenderness, No masses Extremities: No edema, Normal pulses, No tenderness/swelling Skin: No rashes, No breakdown, Other (Wounds clean, dry, intact) Labs LABS Laboratory Tests Test 01/31/19 08:15 White Blood Count 8.0 x10^3/uL (4.0-11.0) Red Blood Count 4.27 x10^6/uL (3.50-5.40) Hemoglobin 12.1 g/dL (12.0-15.5) Hematocrit 36.3 % (36.0-47.0) Mean Corpuscular Volume 85 fL (79-100) Mean Corpuscular Hemoglobin 28 pg (25-35) Mean Corpuscular Hemoglobin Concent 33 g/dL (31-37) Red Cell Distribution Width 12.9 % (11.5-14.5) Platelet Count 336 x10^3/uL (140-400) Neutrophils (%) (Auto) 63 % (31-73) Lymphocytes (%) (Auto) 30 % (24-48) Monocytes (%) (Auto) 6 % (0-9) Eosinophils (%) (Auto) 1 % (0-3) Basophils (%) (Auto) 1 % (0-3) Neutrophils # (Auto) 5.0 x10^3uL (1.8-7.7) Lymphocytes # (Auto) 2.4 x10^3/uL (1.0-4.8) Monocytes # (Auto) 0.5 x10^3/uL (0.0-1.1) Eosinophils # (Auto) 0.1 x10^3/uL (0.0-0.7) Basophils # (Auto) 0.0 x10^3/uL (0.0-0.2) Sodium Level 142 mmol/L (136-145) Potassium Level 3.4 mmol/L (3.5-5.1) Chloride Level 106 mmol/L (98-107) Carbon Dioxide Level 25 mmol/L (21-32) Anion Gap 11 (6-14) Blood Urea Nitrogen 7 mg/dL (7-20) Creatinine 0.7 mg/dL (0.6-1.0) Estimated GFR (Cockcroft-Gault) 104.6 Glucose Level 115 mg/dL (70-99) Calcium Level 8.9 mg/dL (8.5-10.1) Total Bilirubin 1.5 mg/dL (0.2-1.0) Direct Bilirubin 1.1 mg/dL (0.0-0.2) Aspartate Amino Transf (AST/SGOT) 571 U/L (15-37) Alanine Aminotransferase (ALT/SGPT) 590 U/L (14-59) Alkaline Phosphatase 151 U/L (46-116) Total Protein 7.3 g/dL (6.4-8.2) Albumin 3.0 g/dL (3.4-5.0) Amylase Level 42 U/L (25-115) Lipase 117 U/L (73-393) Review of Systems Review of Systems Patient denies fevers, chills, N?V, CP, SOB, diarrhea. Assessment and Plan Assessmemt and Plan Problems Medical Problems: (1) Biliary colic Status: Acute (2) Choledocholithiasis Status: Acute Assessment: Cholelithiasis- surgery 01/30 Elevated LFTs postop (AST 571, ALT 590) Elevated bilirubin postop (1.5) Hypokalemia (3.4) Plan: IV fluids Wound care Soft diet Recheck labs tomorrow 40 KCl PO PT/OT Home meds DVT prophylaxis Full code DC tomorrow if labs improve Comment Review of Relevant I have reviewed the following items breanne (where applicable) has been applied. Labs Laboratory Tests Test 01/30/19 08:08 01/30/19 08:15 01/30/19 08:31 01/31/19 08:15 Urine Collection Type Unknown Urine Color Yellow Urine Clarity Turbid Urine pH 5.0 Urine Specific Novelty >=1.030 Urine Protein Negative mg/dL (NEG-TRACE) Urine Glucose (UA) Negative mg/dL (NEG) Urine Ketones (Stick) Negative mg/dL (NEG) Urine Blood Large (NEG) Urine Nitrite Negative (NEG) Urine Bilirubin Negative (NEG) Urine Urobilinogen Dipstick 0.2 mg/dL (0.2 mg/dL) Urine Leukocyte Esterase Negative (NEG) Urine RBC 0 /HPF (0-2) Urine WBC 0 /HPF (0-4) Urine Squamous Epithelial Cells Mod /LPF Urine Amorphous Sediment Present /HPF Urine Bacteria 0 /HPF (0-FEW) Urine Mucus Mod /LPF Bedside Urine HCG, Qualitative Hcg negative (Negative) White Blood Count 14.0 x10^3/uL (4.0-11.0) 8.0 x10^3/uL (4.0-11.0) Red Blood Count 4.64 x10^6/uL (3.50-5.40) 4.27 x10^6/uL (3.50-5.40) Hemoglobin 13.6 g/dL (12.0-15.5) 12.1 g/dL (12.0-15.5) Hematocrit 39.2 % (36.0-47.0) 36.3 % (36.0-47.0) Mean Corpuscular Volume 84 fL (79-100) 85 fL (79-100) Mean Corpuscular Hemoglobin 29 pg (25-35) 28 pg (25-35) Mean Corpuscular Hemoglobin Concent 35 g/dL (31-37) 33 g/dL (31-37) Red Cell Distribution Width 12.6 % (11.5-14.5) 12.9 % (11.5-14.5) Platelet Count 375 x10^3/uL (140-400) 336 x10^3/uL (140-400) Neutrophils (%) (Auto) 80 % (31-73) 63 % (31-73) Lymphocytes (%) (Auto) 15 % (24-48) 30 % (24-48) Monocytes (%) (Auto) 4 % (0-9) 6 % (0-9) Eosinophils (%) (Auto) 1 % (0-3) 1 % (0-3) Basophils (%) (Auto) 0 % (0-3) 1 % (0-3) Neutrophils # (Auto) 11.2 x10^3uL (1.8-7.7) 5.0 x10^3uL (1.8-7.7) Lymphocytes # (Auto) 2.1 x10^3/uL (1.0-4.8) 2.4 x10^3/uL (1.0-4.8) Monocytes # (Auto) 0.5 x10^3/uL (0.0-1.1) 0.5 x10^3/uL (0.0-1.1) Eosinophils # (Auto) 0.2 x10^3/uL (0.0-0.7) 0.1 x10^3/uL (0.0-0.7) Basophils # (Auto) 0.1 x10^3/uL (0.0-0.2) 0.0 x10^3/uL (0.0-0.2) Sodium Level 139 mmol/L (136-145) 142 mmol/L (136-145) Potassium Level 3.0 mmol/L (3.5-5.1) 3.4 mmol/L (3.5-5.1) Chloride Level 103 mmol/L (98-107) 106 mmol/L (98-107) Carbon Dioxide Level 24 mmol/L (21-32) 25 mmol/L (21-32) Anion Gap 12 (6-14) 11 (6-14) Blood Urea Nitrogen 12 mg/dL (7-20) 7 mg/dL (7-20) Creatinine 0.8 mg/dL (0.6-1.0) 0.7 mg/dL (0.6-1.0) Estimated GFR (Cockcroft-Gault) 89.7 104.6 BUN/Creatinine Ratio 15 (6-20) Glucose Level 118 mg/dL (70-99) 115 mg/dL (70-99) Calcium Level 9.4 mg/dL (8.5-10.1) 8.9 mg/dL (8.5-10.1) Total Bilirubin 0.3 mg/dL (0.2-1.0) 1.5 mg/dL (0.2-1.0) Aspartate Amino Transf (AST/SGOT) 14 U/L (15-37) 571 U/L (15-37) Alanine Aminotransferase (ALT/SGPT) 19 U/L (14-59) 590 U/L (14-59) Alkaline Phosphatase 91 U/L (46-116) 151 U/L (46-116) Total Protein 9.1 g/dL (6.4-8.2) 7.3 g/dL (6.4-8.2) Albumin 4.0 g/dL (3.4-5.0) 3.0 g/dL (3.4-5.0) Albumin/Globulin Ratio 0.8 (1.0-1.7) Lipase 109 U/L (73-393) 117 U/L (73-393) Direct Bilirubin 1.1 mg/dL (0.0-0.2) Amylase Level 42 U/L (25-115) Laboratory Tests Test 01/31/19 08:15 White Blood Count 8.0 x10^3/uL (4.0-11.0) Red Blood Count 4.27 x10^6/uL (3.50-5.40) Hemoglobin 12.1 g/dL (12.0-15.5) Hematocrit 36.3 % (36.0-47.0) Mean Corpuscular Volume 85 fL (79-100) Mean Corpuscular Hemoglobin 28 pg (25-35) Mean Corpuscular Hemoglobin Concent 33 g/dL (31-37) Red Cell Distribution Width 12.9 % (11.5-14.5) Platelet Count 336 x10^3/uL (140-400) Neutrophils (%) (Auto) 63 % (31-73) Lymphocytes (%) (Auto) 30 % (24-48) Monocytes (%) (Auto) 6 % (0-9) Eosinophils (%) (Auto) 1 % (0-3) Basophils (%) (Auto) 1 % (0-3) Neutrophils # (Auto) 5.0 x10^3uL (1.8-7.7) Lymphocytes # (Auto) 2.4 x10^3/uL (1.0-4.8) Monocytes # (Auto) 0.5 x10^3/uL (0.0-1.1) Eosinophils # (Auto) 0.1 x10^3/uL (0.0-0.7) Basophils # (Auto) 0.0 x10^3/uL (0.0-0.2) Sodium Level 142 mmol/L (136-145) Potassium Level 3.4 mmol/L (3.5-5.1) Chloride Level 106 mmol/L (98-107) Carbon Dioxide Level 25 mmol/L (21-32) Anion Gap 11 (6-14) Blood Urea Nitrogen 7 mg/dL (7-20) Creatinine 0.7 mg/dL (0.6-1.0) Estimated GFR (Cockcroft-Gault) 104.6 Glucose Level 115 mg/dL (70-99) Calcium Level 8.9 mg/dL (8.5-10.1) Total Bilirubin 1.5 mg/dL (0.2-1.0) Direct Bilirubin 1.1 mg/dL (0.0-0.2) Aspartate Amino Transf (AST/SGOT) 571 U/L (15-37) Alanine Aminotransferase (ALT/SGPT) 590 U/L (14-59) Alkaline Phosphatase 151 U/L (46-116) Total Protein 7.3 g/dL (6.4-8.2) Albumin 3.0 g/dL (3.4-5.0) Amylase Level 42 U/L (25-115) Lipase 117 U/L (73-393) Medications Current Medications Sodium Chloride 1,000 ml @ 1,000 mls/hr Q1H IV Last administered on 01/30/19at 08:49; Start 01/30/19 at 08:23; Stop 01/30/19 at 09:22; Status DC Ondansetron HCl (Zofran) 8 mg 1X ONCE IV Last administered on 01/30/19at 08:50; Start 01/30/19 at 08:30; Stop 01/30/19 at 08:45; Status DC Fentanyl Citrate (Fentanyl 2ml Vial) 50 mcg 1X ONCE IV Last administered on 01/30/19at 08:51; Start 01/30/19 at 08:30; Stop 01/30/19 at 08:45; Status DC Fentanyl Citrate (Fentanyl 2ml Vial) 50 mcg 1X ONCE IV Last administered on 01/30/19at 10:20; Start 01/30/19 at 10:00; Stop 01/30/19 at 10:01; Status DC Sodium Chloride 1,000 ml @ 1,000 mls/hr 1X ONCE IV Last administered on 01/30/19at 10:18; Start 01/30/19 at 10:00; Stop 01/30/19 at 10:59; Status DC Ondansetron HCl (Zofran) 4 mg PRN Q8HRS PRN IV NAUSEA/VOMITING Last administered on 01/30/19at 16:13; Start 01/30/19 at 10:00; Stop 01/30/19 at 16:40; Status DC Fentanyl Citrate (Fentanyl 2ml Vial) 50 mcg PRN Q2HRS PRN IV PAIN Last administered on 01/31/19at 06:30; Start 01/30/19 at 10:00; Stop 01/31/19 at 09:59; Status DC Sodium Chloride 1,000 ml @ 75 mls/hr [id number] IV Last administered on 01/30/19at 12:45; Start 01/30/19 at 09:53; Stop 01/31/19 at 09:52; Status DC Cefazolin Sodium/ Dextrose 50 ml @ 100 mls/hr 1X PREOP IV ; Start 01/30/19 at 11:30; Stop 01/30/19 at 17:00; Status DC Sevoflurane (Ultane) 60 ml STK-MED ONCE IH ; Start 01/30/19 at 12:36; Stop 01/30/19 at 12:37; Status DC Fentanyl Citrate (Fentanyl 2ml Vial) 100 mcg STK-MED ONCE .ROUTE ; Start 01/30/19 at 12:36; Stop 01/30/19 at 12:37; Status DC Midazolam HCl (Versed) 2 mg STK-MED ONCE .ROUTE ; Start 01/30/19 at 12:36; Stop 01/30/19 at 12:37; Status DC Glycopyrrolate (Robinul) 1 mg STK-MED ONCE .ROUTE ; Start 01/30/19 at 12:36; Stop 01/30/19 at 12:37; Status DC Rocuronium Pine (Zemuron) 50 mg STK-MED ONCE .ROUTE ; Start 01/30/19 at 12:36; Stop 01/30/19 at 12:37; Status DC Propofol 20 ml @ As Directed STK-MED ONCE IV ; Start 01/30/19 at 12:36; Stop 01/30/19 at 12:37; Status DC Ketorolac Tromethamine (Toradol For Or Only) 30 mg STK-MED ONCE INJ ; Start 01/30/19 at 12:36; Stop 01/30/19 at 12:37; Status DC Ondansetron HCl (Zofran) 4 mg STK-MED ONCE .ROUTE ; Start 01/30/19 at 12:36; Stop 01/30/19 at 12:37; Status DC Lidocaine HCl (Lidocaine Pf 2% Vial) 5 ml STK-MED ONCE .ROUTE ; Start 01/30/19 at 12:37; Stop 01/30/19 at 12:38; Status DC Dexamethasone Sodium Phosphate (Decadron) 4 mg STK-MED ONCE .ROUTE ; Start 01/30/19 at 12:43; Stop 01/30/19 at 12:44; Status DC Bupivacaine HCl/ Epinephrine Bitart (Sensorcain-Mpf Epi 0.5%-1:[id number]) 30 ml STK-MED ONCE .ROUTE Last administered on 01/30/19at 14:34; Start 01/30/19 at 12:51; Stop 01/30/19 at 13:52; Status DC Cellulose (Surgicel Hemostat 2x3) 1 each STK-MED ONCE .ROUTE ; Start 01/30/19 at 12:52; Stop 01/30/19 at 13:52; Status DC Iohexol (Omnipaque 300 Mg/ml) 50 ml STK-MED ONCE .ROUTE Last administered on 01/30/19at 14:34; Start 01/30/19 at 12:52; Stop 01/30/19 at 13:52; Status DC Bisacodyl (Dulcolax Supp) 10 mg STK-MED ONCE .ROUTE Last administered on 01/30/19at 14:34; Start 01/30/19 at 12:52; Stop 01/30/19 at 13:52; Status DC Neostigmine Methylsulfate (Neostigmine Methylsulfate) 5 mg STK-MED ONCE .ROUTE ; Start 01/30/19 at 14:13; Stop 01/30/19 at 14:14; Status DC Phenylephrine HCl (PHENYLEPHRINE in 0.9% NACL PF) 1 mg STK-MED ONCE IV ; Start 01/30/19 at 14:30; Stop 01/30/19 at 14:31; Status DC Esmolol HCl (Brevibloc) 100 mg STK-MED ONCE IVP ; Start 01/30/19 at 14:47; Stop 01/30/19 at 14:48; Status DC Enoxaparin Sodium (Lovenox 40mg Syringe) 40 mg Q24H SQ ; Start 01/31/19 at 08:00 Sodium Chloride (Normal Saline Flush) 3 ml QSHIFT PRN IV AFTER MEDS AND BLOOD DRAWS; Start 01/30/19 at 16:00 Ringer's Solution 1,000 ml @ 100 mls/hr Q10H IV Last administered on 01/31/19at 12:15; Start 01/30/19 at 15:55 Dextrose (Dextrose 50%-Water Syringe) 12.5 gm PRN Q15MIN PRN IV SEE COMMENTS; Start 01/30/19 at 16:00 Acetaminophen/ Hydrocodone Bitart (Lortab 5/325) 1 tab PRN Q4HRS PRN PO MILD PAIN Last administered on 01/31/19at 11:04; Start 01/30/19 at 16:00 Morphine Sulfate (Morphine Sulfate) 1 mg PRN Q1HR PRN IV PAIN Last administered on 01/31/19at 11:03; Start 01/30/19 at 16:00 Docusate Sodium (Colace) 100 mg BID PO Last administered on 01/30/19at 21:22; Start 01/30/19 at 21:00 Ondansetron HCl (Zofran) 4 mg PRN Q6HRS PRN IV NAUESA, 1ST CHOICE; Start 01/30/19 at 16:00 Vitals/I & O Vital Sign - Last 24 Hours 01/30/19 01/30/19 01/30/19 01/30/19 15:33 15:33 15:48 16:01 Temp 97.7 97.7 99.1 97.7 97.7 99.1 Pulse 86 75 76 Resp 16 15 16 B/P (MAP) 107/58 100/62 102/65 Pulse Ox 100 100 99 O2 Delivery Mask Simple Mask Simple Mask Room Air O2 Flow Rate 10 10 10 01/30/19 01/30/19 01/30/19 01/30/19 16:11 16:15 16:18 16:22 Temp 99.1 99.1 99.1 99.1 Pulse 68 72 Resp 17 16 16 B/P (MAP) 103/63 100/59 Pulse Ox 97 97 97 O2 Delivery Room Air Room Air Room Air Room Air 01/30/19 01/30/19 01/30/19 01/30/19 16:45 18:00 18:30 19:00 Temp 98.0 98.2 98.0 98.2 Pulse 67 77 77 72 Resp 22 18 B/P (MAP) 109/67 (81) 106/63 (77) 113/63 (80) 100/61 (74) Pulse Ox 99 99 99 98 O2 Delivery Room Air Room Air Room Air Room Air 01/30/19 01/30/19 01/30/19 01/30/19 19:55 21:27 23:00 23:05 Temp 98.6 98.6 Pulse 65 Resp 18 B/P (MAP) 102/63 (76) Pulse Ox 97 O2 Delivery Room Air Room Air Room Air Room Air 01/31/19 01/31/19 01/31/19 01/31/19 01:55 02:44 06:29 06:30 Temp 98.3 98.3 Pulse 64 Resp 14 B/P (MAP) 93/48 (63) Pulse Ox 99 O2 Delivery Room Air Room Air Room Air Room Air 01/31/19 01/31/19 01/31/19 01/31/19 07:00 07:18 08:05 11:00 Temp 98.1 98.0 98.1 98.0 Pulse 59 68 Resp 22 22 B/P (MAP) 103/62 (76) 111/76 (88) Pulse Ox 99 100 O2 Delivery Room Air Room Air Room Air Room Air 01/31/19 01/31/19 01/31/19 01/31/19 11:03 11:04 11:38 12:18 O2 Delivery Room Air Room Air Room Air Room Air Intake and Output 01/30/19 01/30/19 01/31/19 14:59 22:59 06:59 Intake Total 1000 ml 1945 ml Output Total 405 ml Balance 1000 ml 1540 ml MARY CARMEN HOLLIDAY III DO Jan 31, 2019 13:17
[2019-01-31] MEDS ORDERED: POTASSIUM CHLORIDE 20 MEQ TABLET.ER. PO ONE (13:30)
[2019-01-31 15:00] VITALS: BP 104/54
--- NOTE | 2019-01-31 15:25 | PDOC ---
SURGICAL PROGRESS NOTE Subjective Pt with c/o nausea and some abd pain, but improved Vital Signs Vital Signs Date Time Temp Pulse Resp B/P (MAP) Pulse Ox O2 Delivery O2 Flow Rate FiO2 01/31/19 12:18 Room Air 01/31/19 11:00 98.0 68 22 111/76 (88) 100 98.0 01/30/19 15:48 10 I&O Intake and Output 01/31/19 06:59 Intake Total 2945 ml Output Total 405 ml Balance 2540 ml Intake Oral 395 ml IV Total 2550 ml Output Urine Total 400 ml Estimated Blood Loss 5 ml # Voids 6 General: Alert, Oriented X3, Cooperative, mild distress Abdomen: Soft, Other (appropriate TTP) Labs Laboratory Tests Test 01/30/19 08:08 01/30/19 08:15 01/30/19 08:31 01/31/19 08:15 Urine Collection Type Unknown Urine Color Yellow Urine Clarity Turbid Urine pH 5.0 Urine Specific [place] >=1.030 Urine Protein Negative mg/dL (NEG-TRACE) Urine Glucose (UA) Negative mg/dL (NEG) Urine Ketones (Stick) Negative mg/dL (NEG) Urine Blood Large (NEG) Urine Nitrite Negative (NEG) Urine Bilirubin Negative (NEG) Urine Urobilinogen Dipstick 0.2 mg/dL (0.2 mg/dL) Urine Leukocyte Esterase Negative (NEG) Urine RBC 0 /HPF (0-2) Urine WBC 0 /HPF (0-4) Urine Squamous Epithelial Cells Mod /LPF Urine Amorphous Sediment Present /HPF Urine Bacteria 0 /HPF (0-FEW) Urine Mucus Mod /LPF Bedside Urine HCG, Qualitative Hcg negative (Negative) White Blood Count 14.0 x10^3/uL (4.0-11.0) 8.0 x10^3/uL (4.0-11.0) Red Blood Count 4.64 x10^6/uL (3.50-5.40) 4.27 x10^6/uL (3.50-5.40) Hemoglobin 13.6 g/dL (12.0-15.5) 12.1 g/dL (12.0-15.5) Hematocrit 39.2 % (36.0-47.0) 36.3 % (36.0-47.0) Mean Corpuscular Volume 84 fL (79-100) 85 fL (79-100) Mean Corpuscular Hemoglobin 29 pg (25-35) 28 pg (25-35) Mean Corpuscular Hemoglobin Concent 35 g/dL (31-37) 33 g/dL (31-37) Red Cell Distribution Width 12.6 % (11.5-14.5) 12.9 % (11.5-14.5) Platelet Count 375 x10^3/uL (140-400) 336 x10^3/uL (140-400) Neutrophils (%) (Auto) 80 % (31-73) 63 % (31-73) Lymphocytes (%) (Auto) 15 % (24-48) 30 % (24-48) Monocytes (%) (Auto) 4 % (0-9) 6 % (0-9) Eosinophils (%) (Auto) 1 % (0-3) 1 % (0-3) Basophils (%) (Auto) 0 % (0-3) 1 % (0-3) Neutrophils # (Auto) 11.2 x10^3uL (1.8-7.7) 5.0 x10^3uL (1.8-7.7) Lymphocytes # (Auto) 2.1 x10^3/uL (1.0-4.8) 2.4 x10^3/uL (1.0-4.8) Monocytes # (Auto) 0.5 x10^3/uL (0.0-1.1) 0.5 x10^3/uL (0.0-1.1) Eosinophils # (Auto) 0.2 x10^3/uL (0.0-0.7) 0.1 x10^3/uL (0.0-0.7) Basophils # (Auto) 0.1 x10^3/uL (0.0-0.2) 0.0 x10^3/uL (0.0-0.2) Sodium Level 139 mmol/L (136-145) 142 mmol/L (136-145) Potassium Level 3.0 mmol/L (3.5-5.1) 3.4 mmol/L (3.5-5.1) Chloride Level 103 mmol/L (98-107) 106 mmol/L (98-107) Carbon Dioxide Level 24 mmol/L (21-32) 25 mmol/L (21-32) Anion Gap 12 (6-14) 11 (6-14) Blood Urea Nitrogen 12 mg/dL (7-20) 7 mg/dL (7-20) Creatinine 0.8 mg/dL (0.6-1.0) 0.7 mg/dL (0.6-1.0) Estimated GFR (Cockcroft-Gault) 89.7 104.6 BUN/Creatinine Ratio 15 (6-20) Glucose Level 118 mg/dL (70-99) 115 mg/dL (70-99) Calcium Level 9.4 mg/dL (8.5-10.1) 8.9 mg/dL (8.5-10.1) Total Bilirubin 0.3 mg/dL (0.2-1.0) 1.5 mg/dL (0.2-1.0) Aspartate Amino Transf (AST/SGOT) 14 U/L (15-37) 571 U/L (15-37) Alanine Aminotransferase (ALT/SGPT) 19 U/L (14-59) 590 U/L (14-59) Alkaline Phosphatase 91 U/L (46-116) 151 U/L (46-116) Total Protein 9.1 g/dL (6.4-8.2) 7.3 g/dL (6.4-8.2) Albumin 4.0 g/dL (3.4-5.0) 3.0 g/dL (3.4-5.0) Albumin/Globulin Ratio 0.8 (1.0-1.7) Lipase 109 U/L (73-393) 117 U/L (73-393) Direct Bilirubin 1.1 mg/dL (0.0-0.2) Amylase Level 42 U/L (25-115) Laboratory Tests Test 01/31/19 08:15 White Blood Count 8.0 x10^3/uL (4.0-11.0) Red Blood Count 4.27 x10^6/uL (3.50-5.40) Hemoglobin 12.1 g/dL (12.0-15.5) Hematocrit 36.3 % (36.0-47.0) Mean Corpuscular Volume 85 fL (79-100) Mean Corpuscular Hemoglobin 28 pg (25-35) Mean Corpuscular Hemoglobin Concent 33 g/dL (31-37) Red Cell Distribution Width 12.9 % (11.5-14.5) Platelet Count 336 x10^3/uL (140-400) Neutrophils (%) (Auto) 63 % (31-73) Lymphocytes (%) (Auto) 30 % (24-48) Monocytes (%) (Auto) 6 % (0-9) Eosinophils (%) (Auto) 1 % (0-3) Basophils (%) (Auto) 1 % (0-3) Neutrophils # (Auto) 5.0 x10^3uL (1.8-7.7) Lymphocytes # (Auto) 2.4 x10^3/uL (1.0-4.8) Monocytes # (Auto) 0.5 x10^3/uL (0.0-1.1) Eosinophils # (Auto) 0.1 x10^3/uL (0.0-0.7) Basophils # (Auto) 0.0 x10^3/uL (0.0-0.2) Sodium Level 142 mmol/L (136-145) Potassium Level 3.4 mmol/L (3.5-5.1) Chloride Level 106 mmol/L (98-107) Carbon Dioxide Level 25 mmol/L (21-32) Anion Gap 11 (6-14) Blood Urea Nitrogen 7 mg/dL (7-20) Creatinine 0.7 mg/dL (0.6-1.0) Estimated GFR (Cockcroft-Gault) 104.6 Glucose Level 115 mg/dL (70-99) Calcium Level 8.9 mg/dL (8.5-10.1) Total Bilirubin 1.5 mg/dL (0.2-1.0) Direct Bilirubin 1.1 mg/dL (0.0-0.2) Aspartate Amino Transf (AST/SGOT) 571 U/L (15-37) Alanine Aminotransferase (ALT/SGPT) 590 U/L (14-59) Alkaline Phosphatase 151 U/L (46-116) Total Protein 7.3 g/dL (6.4-8.2) Albumin 3.0 g/dL (3.4-5.0) Amylase Level 42 U/L (25-115) Lipase 117 U/L (73-393) Problem List Problems Medical Problems: (1) Biliary colic Status: Acute (2) Choledocholithiasis Status: Acute Assessment/Plan s/p lap laura and common bile duct exploration cont supportive care will recheck labs in AM d/w pt and pt's supportive ADDY TEJEDA MD Jan 31, 2019 15:25
[2019-01-31 19:00] VITALS: BP_SYST 103; BP_SYST 98; BP_DIAS 44; BP_DIAS 53
[2019-01-31 23:00] VITALS: BP 98/53
[2019-02-01] MEDS: MORPHINE SULFATE 2 MG/ML VIAL. IV PRN ×2 (00:59→06:45)
[2019-02-01 03:00] VITALS: BP 104/58
[2019-02-01] MEDS: IV RINGERS,LACTATED 1000ML 1,000 ML IV SCH ×2 (05:35→10:08)
[2019-02-01 07:00] VITALS: BP 100/56
[2019-02-01 07:13] LABS: BASO # 0.1 x10^3/uL (0.0-0.2); BASO % 1 % (0-3); EOS # 0.3 x10^3/uL (0.0-0.7); EOS % 4 % (0-3); HEMATOCRIT 35.6 % (36.0-47.0); HEMOGLOBIN 11.9 g/dL (12.0-15.5); LYMPH # 3.2 x10^3/uL (1.0-4.8); LYMPH % 38 % (24-48); MEAN CORPUSCULAR HEMOGLOBIN 29 pg (25-35); MEAN CORPUSCULAR HGB CONC 33 g/dL (31-37); MEAN CORPUSCULAR VOLUME 85 fL (79-100); MONO # 0.5 x10^3/uL (0.0-1.1); MONO % 6 % (0-9); NEUT # 4.4 x10^3uL (1.8-7.7); NEUT % 52 % (31-73); PLATELET COUNT 306 x10^3/uL (140-400); RED BLOOD COUNT 4.17 x10^6/uL (3.50-5.40); RED CELL DISTRIBUTION WIDTH 12.5 % (11.5-14.5); WHITE BLOOD COUNT 8.4 x10^3/uL (4.0-11.0)
[2019-02-01 07:31] LABS: ALBUMIN/GLOBULIN RATIO 0.7 (1.0-1.7); CREATININE 0.5 mg/dL (0.6-1.0); GFR 154.3; POTASSIUM 3.3 mmol/L (3.5-5.1); TOTAL BILIRUBIN 0.5 mg/dL (0.2-1.0); TOTAL PROTEIN 7.4 g/dL (6.4-8.2)
[2019-02-01] MEDS: ENOXAPARIN 40 MG/0.4 ML SYRINGE. SQ SCH (08:00)
[2019-02-01] MEDS: DOCUSATE SODIUM 100 MG CAPSULE. PO SCH (09:00)
--- NOTE | 2019-02-01 09:00 | NUR ---
Possible ERCP today, lovenox non-administered. Pt walking ad neelima.
--- NOTE | 2019-02-01 09:58 | PDOC ---
SURGICAL PROGRESS NOTE Subjective some pain RUQ no nausea Vital Signs Vital Signs Date Time Temp Pulse Resp B/P (MAP) Pulse Ox O2 Delivery O2 Flow Rate FiO2 02/01/19 07:10 Room Air 02/01/19 07:00 98.3 63 18 100/56 (71) 100 98.3 I&O Intake and Output 02/01/19 07:00 Intake Total 480 ml Balance 480 ml Intake Oral 480 ml # Voids 4 General: Alert, Oriented X3, Cooperative, No acute distress Abdomen: Soft, Other (lap dressings dry) Labs Laboratory Tests Test 01/31/19 08:15 02/01/19 06:27 White Blood Count 8.0 x10^3/uL (4.0-11.0) 8.4 x10^3/uL (4.0-11.0) Red Blood Count 4.27 x10^6/uL (3.50-5.40) 4.17 x10^6/uL (3.50-5.40) Hemoglobin 12.1 g/dL (12.0-15.5) 11.9 g/dL (12.0-15.5) Hematocrit 36.3 % (36.0-47.0) 35.6 % (36.0-47.0) Mean Corpuscular Volume 85 fL (79-100) 85 fL (79-100) Mean Corpuscular Hemoglobin 28 pg (25-35) 29 pg (25-35) Mean Corpuscular Hemoglobin Concent 33 g/dL (31-37) 33 g/dL (31-37) Red Cell Distribution Width 12.9 % (11.5-14.5) 12.5 % (11.5-14.5) Platelet Count 336 x10^3/uL (140-400) 306 x10^3/uL (140-400) Neutrophils (%) (Auto) 63 % (31-73) 52 % (31-73) Lymphocytes (%) (Auto) 30 % (24-48) 38 % (24-48) Monocytes (%) (Auto) 6 % (0-9) 6 % (0-9) Eosinophils (%) (Auto) 1 % (0-3) 4 % (0-3) Basophils (%) (Auto) 1 % (0-3) 1 % (0-3) Neutrophils # (Auto) 5.0 x10^3uL (1.8-7.7) 4.4 x10^3uL (1.8-7.7) Lymphocytes # (Auto) 2.4 x10^3/uL (1.0-4.8) 3.2 x10^3/uL (1.0-4.8) Monocytes # (Auto) 0.5 x10^3/uL (0.0-1.1) 0.5 x10^3/uL (0.0-1.1) Eosinophils # (Auto) 0.1 x10^3/uL (0.0-0.7) 0.3 x10^3/uL (0.0-0.7) Basophils # (Auto) 0.0 x10^3/uL (0.0-0.2) 0.1 x10^3/uL (0.0-0.2) Sodium Level 142 mmol/L (136-145) 138 mmol/L (136-145) Potassium Level 3.4 mmol/L (3.5-5.1) 3.3 mmol/L (3.5-5.1) Chloride Level 106 mmol/L (98-107) 103 mmol/L (98-107) Carbon Dioxide Level 25 mmol/L (21-32) 25 mmol/L (21-32) Anion Gap 11 (6-14) 10 (6-14) Blood Urea Nitrogen 7 mg/dL (7-20) 7 mg/dL (7-20) Creatinine 0.7 mg/dL (0.6-1.0) 0.5 mg/dL (0.6-1.0) Estimated GFR (Cockcroft-Gault) 104.6 154.3 Glucose Level 115 mg/dL (70-99) 96 mg/dL (70-99) Calcium Level 8.9 mg/dL (8.5-10.1) 9.0 mg/dL (8.5-10.1) Total Bilirubin 1.5 mg/dL (0.2-1.0) 0.5 mg/dL (0.2-1.0) Direct Bilirubin 1.1 mg/dL (0.0-0.2) Aspartate Amino Transf (AST/SGOT) 571 U/L (15-37) 186 U/L (15-37) Alanine Aminotransferase (ALT/SGPT) 590 U/L (14-59) 512 U/L (14-59) Alkaline Phosphatase 151 U/L (46-116) 166 U/L (46-116) Total Protein 7.3 g/dL (6.4-8.2) 7.4 g/dL (6.4-8.2) Albumin 3.0 g/dL (3.4-5.0) 3.0 g/dL (3.4-5.0) Amylase Level 42 U/L (25-115) Lipase 117 U/L (73-393) BUN/Creatinine Ratio 14 (6-20) Albumin/Globulin Ratio 0.7 (1.0-1.7) Laboratory Tests Test 02/01/19 06:27 White Blood Count 8.4 x10^3/uL (4.0-11.0) Red Blood Count 4.17 x10^6/uL (3.50-5.40) Hemoglobin 11.9 g/dL (12.0-15.5) Hematocrit 35.6 % (36.0-47.0) Mean Corpuscular Volume 85 fL (79-100) Mean Corpuscular Hemoglobin 29 pg (25-35) Mean Corpuscular Hemoglobin Concent 33 g/dL (31-37) Red Cell Distribution Width 12.5 % (11.5-14.5) Platelet Count 306 x10^3/uL (140-400) Neutrophils (%) (Auto) 52 % (31-73) Lymphocytes (%) (Auto) 38 % (24-48) Monocytes (%) (Auto) 6 % (0-9) Eosinophils (%) (Auto) 4 % (0-3) Basophils (%) (Auto) 1 % (0-3) Neutrophils # (Auto) 4.4 x10^3uL (1.8-7.7) Lymphocytes # (Auto) 3.2 x10^3/uL (1.0-4.8) Monocytes # (Auto) 0.5 x10^3/uL (0.0-1.1) Eosinophils # (Auto) 0.3 x10^3/uL (0.0-0.7) Basophils # (Auto) 0.1 x10^3/uL (0.0-0.2) Sodium Level 138 mmol/L (136-145) Potassium Level 3.3 mmol/L (3.5-5.1) Chloride Level 103 mmol/L (98-107) Carbon Dioxide Level 25 mmol/L (21-32) Anion Gap 10 (6-14) Blood Urea Nitrogen 7 mg/dL (7-20) Creatinine 0.5 mg/dL (0.6-1.0) Estimated GFR (Cockcroft-Gault) 154.3 BUN/Creatinine Ratio 14 (6-20) Glucose Level 96 mg/dL (70-99) Calcium Level 9.0 mg/dL (8.5-10.1) Total Bilirubin 0.5 mg/dL (0.2-1.0) Aspartate Amino Transf (AST/SGOT) 186 U/L (15-37) Alanine Aminotransferase (ALT/SGPT) 512 U/L (14-59) Alkaline Phosphatase 166 U/L (46-116) Total Protein 7.4 g/dL (6.4-8.2) Albumin 3.0 g/dL (3.4-5.0) Albumin/Globulin Ratio 0.7 (1.0-1.7) Problem List Problems Medical Problems: (1) Biliary colic Status: Acute (2) Choledocholithiasis Status: Acute Assessment/Plan s/p laura, CBDE Tbili down to 0.5 GI following MICKI RINCON APRN Feb 01, 2019 09:58
--- NOTE | 2019-02-01 10:37 | PDOC ---
PROGRESS NOTES Chief Complaint Chief Complaint RUQ pain History of Present Illness History of Present Illness Patient was resting comfortably in bed today. She is a [place] speaker. She is feeling much better today. POD2, 3 incisions. Common bile duct was dilated about 0.7 cm, suspected choledocholithiasis. plan ERCP Vitals Vitals Vital Signs Date Time Temp Pulse Resp B/P (MAP) Pulse Ox O2 Delivery O2 Flow Rate FiO2 02/01/19 07:10 Room Air 02/01/19 07:00 98.3 63 18 100/56 (71) 100 98.3 Physical Exam General: Alert, Oriented X3, Cooperative, No acute distress Heart: Regular rate, Normal S1, Normal S2, No murmurs Lungs: Clear (No wheezes, rales, or rhonchi) Abdomen: Normal bowel sounds, Soft, Other (lap dressings dry) Extremities: No edema, Normal pulses, No tenderness/swelling Skin: No rashes, No breakdown, Other (Wounds clean, dry, intact) Labs LABS ABDOMEN LTD History: Right upper quadrant abdominal pain Comparison: None. Findings: Multiple sonographic images of the abdomen are submitted. There is no abnormality of the visualized pancreas. Gallbladder is present, internal echogenicity. Reportedly there is a positive sonographic Guzman's sign. Gallbladder wall is not significantly thickened. Common bile duct is somewhat dilated about 0.7 cm, also small focus of echogenicity internally the which shadows likely due to choledocholithiasis. Right kidney measured 10.1 x 4.7 x 3.7 cm, no hydronephrosis. There is segmental visualization of the inferior vena cava. Hepatic echotexture is within normal limits, no focal hepatic lesion demonstrated. Right lobe of the liver measured 16.2 cm longitudinal. Impression: 1. There is cholelithiasis, reportedly positive sonographic Guzman's sign although no significant gallbladder wall thickening. Common bile duct is dilated about 0.7 cm, suspected choledocholithiasis. Electronically signed by: Dariusz Johnson MD (01/30/2019 9:18 AM) [facility] Laboratory Tests Test 02/01/19 06:27 White Blood Count 8.4 x10^3/uL (4.0-11.0) Red Blood Count 4.17 x10^6/uL (3.50-5.40) Hemoglobin 11.9 g/dL (12.0-15.5) Hematocrit 35.6 % (36.0-47.0) Mean Corpuscular Volume 85 fL (79-100) Mean Corpuscular Hemoglobin 29 pg (25-35) Mean Corpuscular Hemoglobin Concent 33 g/dL (31-37) Red Cell Distribution Width 12.5 % (11.5-14.5) Platelet Count 306 x10^3/uL (140-400) Neutrophils (%) (Auto) 52 % (31-73) Lymphocytes (%) (Auto) 38 % (24-48) Monocytes (%) (Auto) 6 % (0-9) Eosinophils (%) (Auto) 4 % (0-3) Basophils (%) (Auto) 1 % (0-3) Neutrophils # (Auto) 4.4 x10^3uL (1.8-7.7) Lymphocytes # (Auto) 3.2 x10^3/uL (1.0-4.8) Monocytes # (Auto) 0.5 x10^3/uL (0.0-1.1) Eosinophils # (Auto) 0.3 x10^3/uL (0.0-0.7) Basophils # (Auto) 0.1 x10^3/uL (0.0-0.2) Sodium Level 138 mmol/L (136-145) Potassium Level 3.3 mmol/L (3.5-5.1) Chloride Level 103 mmol/L (98-107) Carbon Dioxide Level 25 mmol/L (21-32) Anion Gap 10 (6-14) Blood Urea Nitrogen 7 mg/dL (7-20) Creatinine 0.5 mg/dL (0.6-1.0) Estimated GFR (Cockcroft-Gault) 154.3 BUN/Creatinine Ratio 14 (6-20) Glucose Level 96 mg/dL (70-99) Calcium Level 9.0 mg/dL (8.5-10.1) Total Bilirubin 0.5 mg/dL (0.2-1.0) Aspartate Amino Transf (AST/SGOT) 186 U/L (15-37) Alanine Aminotransferase (ALT/SGPT) 512 U/L (14-59) Alkaline Phosphatase 166 U/L (46-116) Total Protein 7.4 g/dL (6.4-8.2) Albumin 3.0 g/dL (3.4-5.0) Albumin/Globulin Ratio 0.7 (1.0-1.7) Assessment and Plan Assessmemt and Plan Problems Medical Problems: (1) Biliary colic Status: Acute (2) Choledocholithiasis Status: Acute Comment Review of Relevant I have reviewed the following items breanne (where applicable) has been applied. Labs Laboratory Tests Test 01/31/19 08:15 02/01/19 06:27 White Blood Count 8.0 x10^3/uL (4.0-11.0) 8.4 x10^3/uL (4.0-11.0) Red Blood Count 4.27 x10^6/uL (3.50-5.40) 4.17 x10^6/uL (3.50-5.40) Hemoglobin 12.1 g/dL (12.0-15.5) 11.9 g/dL (12.0-15.5) Hematocrit 36.3 % (36.0-47.0) 35.6 % (36.0-47.0) Mean Corpuscular Volume 85 fL (79-100) 85 fL (79-100) Mean Corpuscular Hemoglobin 28 pg (25-35) 29 pg (25-35) Mean Corpuscular Hemoglobin Concent 33 g/dL (31-37) 33 g/dL (31-37) Red Cell Distribution Width 12.9 % (11.5-14.5) 12.5 % (11.5-14.5) Platelet Count 336 x10^3/uL (140-400) 306 x10^3/uL (140-400) Neutrophils (%) (Auto) 63 % (31-73) 52 % (31-73) Lymphocytes (%) (Auto) 30 % (24-48) 38 % (24-48) Monocytes (%) (Auto) 6 % (0-9) 6 % (0-9) Eosinophils (%) (Auto) 1 % (0-3) 4 % (0-3) Basophils (%) (Auto) 1 % (0-3) 1 % (0-3) Neutrophils # (Auto) 5.0 x10^3uL (1.8-7.7) 4.4 x10^3uL (1.8-7.7) Lymphocytes # (Auto) 2.4 x10^3/uL (1.0-4.8) 3.2 x10^3/uL (1.0-4.8) Monocytes # (Auto) 0.5 x10^3/uL (0.0-1.1) 0.5 x10^3/uL (0.0-1.1) Eosinophils # (Auto) 0.1 x10^3/uL (0.0-0.7) 0.3 x10^3/uL (0.0-0.7) Basophils # (Auto) 0.0 x10^3/uL (0.0-0.2) 0.1 x10^3/uL (0.0-0.2) Sodium Level 142 mmol/L (136-145) 138 mmol/L (136-145) Potassium Level 3.4 mmol/L (3.5-5.1) 3.3 mmol/L (3.5-5.1) Chloride Level 106 mmol/L (98-107) 103 mmol/L (98-107) Carbon Dioxide Level 25 mmol/L (21-32) 25 mmol/L (21-32) Anion Gap 11 (6-14) 10 (6-14) Blood Urea Nitrogen 7 mg/dL (7-20) 7 mg/dL (7-20) Creatinine 0.7 mg/dL (0.6-1.0) 0.5 mg/dL (0.6-1.0) Estimated GFR (Cockcroft-Gault) 104.6 154.3 Glucose Level 115 mg/dL (70-99) 96 mg/dL (70-99) Calcium Level 8.9 mg/dL (8.5-10.1) 9.0 mg/dL (8.5-10.1) Total Bilirubin 1.5 mg/dL (0.2-1.0) 0.5 mg/dL (0.2-1.0) Direct Bilirubin 1.1 mg/dL (0.0-0.2) Aspartate Amino Transf (AST/SGOT) 571 U/L (15-37) 186 U/L (15-37) Alanine Aminotransferase (ALT/SGPT) 590 U/L (14-59) 512 U/L (14-59) Alkaline Phosphatase 151 U/L (46-116) 166 U/L (46-116) Total Protein 7.3 g/dL (6.4-8.2) 7.4 g/dL (6.4-8.2) Albumin 3.0 g/dL (3.4-5.0) 3.0 g/dL (3.4-5.0) Amylase Level 42 U/L (25-115) Lipase 117 U/L (73-393) BUN/Creatinine Ratio 14 (6-20) Albumin/Globulin Ratio 0.7 (1.0-1.7) Laboratory Tests Test 02/01/19 06:27 White Blood Count 8.4 x10^3/uL (4.0-11.0) Red Blood Count 4.17 x10^6/uL (3.50-5.40) Hemoglobin 11.9 g/dL (12.0-15.5) Hematocrit 35.6 % (36.0-47.0) Mean Corpuscular Volume 85 fL (79-100) Mean Corpuscular Hemoglobin 29 pg (25-35) Mean Corpuscular Hemoglobin Concent 33 g/dL (31-37) Red Cell Distribution Width 12.5 % (11.5-14.5) Platelet Count 306 x10^3/uL (140-400) Neutrophils (%) (Auto) 52 % (31-73) Lymphocytes (%) (Auto) 38 % (24-48) Monocytes (%) (Auto) 6 % (0-9) Eosinophils (%) (Auto) 4 % (0-3) Basophils (%) (Auto) 1 % (0-3) Neutrophils # (Auto) 4.4 x10^3uL (1.8-7.7) Lymphocytes # (Auto) 3.2 x10^3/uL (1.0-4.8) Monocytes # (Auto) 0.5 x10^3/uL (0.0-1.1) Eosinophils # (Auto) 0.3 x10^3/uL (0.0-0.7) Basophils # (Auto) 0.1 x10^3/uL (0.0-0.2) Sodium Level 138 mmol/L (136-145) Potassium Level 3.3 mmol/L (3.5-5.1) Chloride Level 103 mmol/L (98-107) Carbon Dioxide Level 25 mmol/L (21-32) Anion Gap 10 (6-14) Blood Urea Nitrogen 7 mg/dL (7-20) Creatinine 0.5 mg/dL (0.6-1.0) Estimated GFR (Cockcroft-Gault) 154.3 BUN/Creatinine Ratio 14 (6-20) Glucose Level 96 mg/dL (70-99) Calcium Level 9.0 mg/dL (8.5-10.1) Total Bilirubin 0.5 mg/dL (0.2-1.0) Aspartate Amino Transf (AST/SGOT) 186 U/L (15-37) Alanine Aminotransferase (ALT/SGPT) 512 U/L (14-59) Alkaline Phosphatase 166 U/L (46-116) Total Protein 7.4 g/dL (6.4-8.2) Albumin 3.0 g/dL (3.4-5.0) Albumin/Globulin Ratio 0.7 (1.0-1.7) Medications Current Medications Sodium Chloride 1,000 ml @ 1,000 mls/hr Q1H IV Last administered on 01/30/19at 08:49; Start 01/30/19 at 08:23; Stop 01/30/19 at 09:22; Status DC Ondansetron HCl (Zofran) 8 mg 1X ONCE IV Last administered on 01/30/19at 08:50; Start 01/30/19 at 08:30; Stop 01/30/19 at 08:45; Status DC Fentanyl Citrate (Fentanyl 2ml Vial) 50 mcg 1X ONCE IV Last administered on 01/30/19at 08:51; Start 01/30/19 at 08:30; Stop 01/30/19 at 08:45; Status DC Fentanyl Citrate (Fentanyl 2ml Vial) 50 mcg 1X ONCE IV Last administered on 01/30/19at 10:20; Start 01/30/19 at 10:00; Stop 01/30/19 at 10:01; Status DC Sodium Chloride 1,000 ml @ 1,000 mls/hr 1X ONCE IV Last administered on at 10:18; Start 01/30/19 at 10:00; Stop 01/30/19 at 10:59; Status DC Ondansetron HCl (Zofran) 4 mg PRN Q8HRS PRN IV NAUSEA/VOMITING Last administered on 01/30/19at 16:13; Start 01/30/19 at 10:00; Stop 01/30/19 at 16:40; Status DC Fentanyl Citrate (Fentanyl 2ml Vial) 50 mcg PRN Q2HRS PRN IV PAIN Last administered on 01/31/19at 06:30; Start 01/30/19 at 10:00; Stop 01/31/19 at 09:59; Status DC Sodium Chloride 1,000 ml @ 75 mls/hr [id number] IV Last administered on 01/30/19at 12:45; Start 01/30/19 at 09:53; Stop 01/31/19 at 09:52; Status DC Cefazolin Sodium/ Dextrose 50 ml @ 100 mls/hr 1X PREOP IV ; Start 01/30/19 at 11:30; Stop 01/30/19 at 17:00; Status DC Sevoflurane (Ultane) 60 ml STK-MED ONCE IH ; Start 01/30/19 at 12:36; Stop 01/30/19 at 12:37; Status DC Fentanyl Citrate (Fentanyl 2ml Vial) 100 mcg STK-MED ONCE .ROUTE ; Start 01/30/19 at 12:36; Stop 01/30/19 at 12:37; Status DC Midazolam HCl (Versed) 2 mg STK-MED ONCE .ROUTE ; Start 01/30/19 at 12:36; Stop 01/30/19 at 12:37; Status DC Glycopyrrolate (Robinul) 1 mg STK-MED ONCE .ROUTE ; Start 01/30/19 at 12:36; Stop 01/30/19 at 12:37; Status DC Rocuronium [place] (Zemuron) 50 mg STK-MED ONCE .ROUTE ; Start 01/30/19 at 12:36; Stop 01/30/19 at 12:37; Status DC Propofol 20 ml @ As Directed STK-MED ONCE IV ; Start 01/30/19 at 12:36; Stop 01/30/19 at 12:37; Status DC Ketorolac Tromethamine (Toradol For Or Only) 30 mg STK-MED ONCE INJ ; Start 01/30/19 at 12:36; Stop 01/30/19 at 12:37; Status DC Ondansetron HCl (Zofran) 4 mg STK-MED ONCE .ROUTE ; Start 01/30/19 at 12:36; Stop 01/30/19 at 12:37; Status DC Lidocaine HCl (Lidocaine Pf 2% Vial) 5 ml STK-MED ONCE .ROUTE ; Start 01/30/19 at 12:37; Stop 01/30/19 at 12:38; Status DC Dexamethasone Sodium Phosphate (Decadron) 4 mg STK-MED ONCE .ROUTE ; Start 01/30/19 at 12:43; Stop 01/30/19 at 12:44; Status DC Bupivacaine HCl/ Epinephrine Bitart (Sensorcain-Mpf Epi 0.5%-1:500591) 30 ml STK-MED ONCE .ROUTE Last administered on 01/30/19at 14:34; Start 01/30/19 at 12:51; Stop 01/30/19 at 13:52; Status DC Cellulose (Surgicel Hemostat 2x3) 1 each STK-MED ONCE .ROUTE ; Start 01/30/19 at 12:52; Stop 01/30/19 at 13:52; Status DC Iohexol (Omnipaque 300 Mg/ml) 50 ml STK-MED ONCE .ROUTE Last administered on 01/30/19at 14:34; Start 01/30/19 at 12:52; Stop 01/30/19 at 13:52; Status DC Bisacodyl (Dulcolax Supp) 10 mg STK-MED ONCE .ROUTE Last administered on 01/30/19at 14:34; Start 01/30/19 at 12:52; Stop 01/30/19 at 13:52; Status DC Neostigmine Methylsulfate (Neostigmine Methylsulfate) 5 mg STK-MED ONCE .ROUTE ; Start 01/30/19 at 14:13; Stop 01/30/19 at 14:14; Status DC Phenylephrine HCl (PHENYLEPHRINE in 0.9% NACL PF) 1 mg STK-MED ONCE IV ; Start 01/30/19 at 14:30; Stop 01/30/19 at 14:31; Status DC Esmolol HCl (Brevibloc) 100 mg STK-MED ONCE IVP ; Start 01/30/19 at 14:47; Stop 01/30/19 at 14:48; Status DC Enoxaparin Sodium (Lovenox 40mg Syringe) 40 mg Q24H SQ ; Start 01/31/19 at 08:00 Sodium Chloride (Normal Saline Flush) 3 ml QSHIFT PRN IV AFTER MEDS AND BLOOD DRAWS; Start 01/30/19 at 16:00 Ringer's Solution 1,000 ml @ 100 mls/hr Q10H IV Last administered on 02/01/19at 05:35; Start 01/30/19 at 15:55 Dextrose (Dextrose 50%-Water Syringe) 12.5 gm PRN Q15MIN PRN IV SEE COMMENTS; Start 01/30/19 at 16:00 Acetaminophen/ Hydrocodone Bitart (Lortab 5/325) 1 tab PRN Q4HRS PRN PO MILD PAIN Last administered on 01/31/19at 20:01; Start 01/30/19 at 16:00 Morphine Sulfate (Morphine Sulfate) 1 mg PRN Q1HR PRN IV PAIN Last administered on 02/01/19at 06:45; Start 01/30/19 at 16:00 Docusate Sodium (Colace) 100 mg BID PO Last administered on 01/31/19at 20:05; Start 01/30/19 at 21:00 Ondansetron HCl (Zofran) 4 mg PRN Q6HRS PRN IV NAUESA, 1ST CHOICE; Start 01/30 at 16:00 Potassium Chloride (Klor-Con) 40 meq 1X ONCE PO Last administered on 01/31/19at 13:39; Start 01/31/19 at 13:30; Stop 01/31/19 at 13:31; Status DC Cefazolin Sodium/ Dextrose (Ancef 2gm Premix) 2 gm STK-MED ONCE IV ; Start 01/30/19 at 12:00; Stop 02/01/19 at 07:40; Status DC Vitals/I & O Vital Sign - Last 24 Hours 01/31/19 01/31/19 01/31/19 01/31/19 11:00 11:03 11:04 15:00 Temp 98.0 97.8 98.0 97.8 Pulse 68 63 Resp 22 18 B/P (MAP) 111/76 (88) 104/54 (71) Pulse Ox 100 99 O2 Delivery Room Air Room Air Room Air Room Air 4/28/19 4/28/19 4/28/19 4/28/19 15:51 15:52 19:00 19:55 Temp 97.9 97.9 Pulse 61 Resp 14 B/P (MAP) 103/44 (63) Pulse Ox 100 98 O2 Delivery Room Air Room Air Room Air Room Air 01/31/19 01/31/19 01/31/19 01/31/19 20:01 20:02 21:01 23:00 Temp 97.7 97.7 Pulse 68 Resp 18 B/P (MAP) 98/53 (68) Pulse Ox 98 O2 Delivery Room Air Room Air Room Air Room Air 02/01/19 02/01/19 02/01/19 02/01/19 00:59 03:00 06:45 07:00 Temp 98.2 98.3 98.2 98.3 Pulse 64 63 Resp 18 18 B/P (MAP) 104/58 (73) 100/56 (71) Pulse Ox 98 100 O2 Delivery Room Air Room Air Room Air Room Air 02/01/19 07:10 O2 Delivery Room Air Intake and Output 01/31/19 01/31/19 02/01/19 14:59 22:59 06:59 Intake Total 480 ml Balance 480 ml BEVERLEY DELGADILLO MD Feb 01, 2019 10:36
[2019-02-01 11:00] VITALS: BP 104/63
--- NOTE | 2019-02-01 11:47 | PDOC ---
Subjective: Subjective: "A little" pain. Tolerating diet. Objective: Vital Signs: Vital Signs Date Time Temp Pulse Resp B/P (MAP) Pulse Ox O2 Delivery O2 Flow Rate FiO2 02/01/19 07:10 Room Air 02/01/19 07:00 98.3 63 18 100/56 (71) 100 98.3 Labs: Laboratory Tests Test 02/01/19 06:27 White Blood Count 8.4 x10^3/uL Red Blood Count 4.17 x10^6/uL Hemoglobin 11.9 g/dL Hematocrit 35.6 % Mean Corpuscular Volume 85 fL Mean Corpuscular Hemoglobin 29 pg Mean Corpuscular Hemoglobin Concent 33 g/dL Red Cell Distribution Width 12.5 % Platelet Count 306 x10^3/uL Neutrophils (%) (Auto) 52 % Lymphocytes (%) (Auto) 38 % Monocytes (%) (Auto) 6 % Eosinophils (%) (Auto) 4 % Basophils (%) (Auto) 1 % Neutrophils # (Auto) 4.4 x10^3uL Lymphocytes # (Auto) 3.2 x10^3/uL Monocytes # (Auto) 0.5 x10^3/uL Eosinophils # (Auto) 0.3 x10^3/uL Basophils # (Auto) 0.1 x10^3/uL Sodium Level 138 mmol/L Potassium Level 3.3 mmol/L Chloride Level 103 mmol/L Carbon Dioxide Level 25 mmol/L Anion Gap 10 Blood Urea Nitrogen 7 mg/dL Creatinine 0.5 mg/dL Estimated GFR (Cockcroft-Gault) 154.3 BUN/Creatinine Ratio 14 Glucose Level 96 mg/dL Calcium Level 9.0 mg/dL Total Bilirubin 0.5 mg/dL Aspartate Amino Transf (AST/SGOT) 186 U/L Alanine Aminotransferase (ALT/SGPT) 512 U/L Alkaline Phosphatase 166 U/L Total Protein 7.4 g/dL Albumin 3.0 g/dL Albumin/Globulin Ratio 0.7 PE: GEN: NAD - was talking on the phone LUNGS: CTAB HEART: RRR ABD: mild incisional tenderness, soft, NABS NEURO/PSYCH: A & O 3 A/P: S/p cholecystectomy, CBDE -- LFTs improving. IRWIN TANNER Feb 01, 2019 11:47
[2019-02-01 15:00] VITALS: BP 101/53
--- NOTE | 2019-02-01 15:25 | PDOC3 ---
Discharge Summary Date of Admission: Jan 30, 2019 Date of Discharge: Feb 01, 2019 Follow-Up: 3-5 days Admitting Diagnosis comment: Chief Complaint Chief Complaint RUQ pain History of Present Illness History of Present Illness Patient was resting comfortably in bed today. She is a Indonesian speaker. She is feeling much better today. POD 3, 3 incisions. Common bile duct was dilated about 0.7 cm, suspected choledocholithiasis. plan d/c today Vitals Vitals Vital Signs Date Time Temp Pulse Resp B/P (MAP) Pulse Ox O2 Delivery O2 Flow Rate FiO2 02/01/19 07:10 Room Air 02/01/19 07:00 98.3 63 18 100/56 (71) 100 98.3 Physical Exam General: Alert, Oriented X3, Cooperative, No acute distress Heart: Regular rate, Normal S1, Normal S2, No murmurs Lungs: Clear (No wheezes, rales, or rhonchi) Abdomen: Normal bowel sounds, Soft, Other (lap dressings dry) Extremities: No edema, Normal pulses, No tenderness/swelling Skin: No rashes, No breakdown, Other (Wounds clean, dry, intact) Labs [facility]S [facility] History: Right upper quadrant abdominal pain Comparison: None. Findings: Multiple sonographic images of the abdomen are submitted. There is no abnormality of the visualized pancreas. Gallbladder is present, internal echogenicity. Reportedly there is a positive sonographic Guzman's sign. Gallbladder wall is not significantly thickened. Common bile duct is somewhat dilated about 0.7 cm, also small focus of echogenicity internally the which shadows likely due to choledocholithiasis. Right kidney measured 10.1 x 4.7 x 3.7 cm, no hydronephrosis. There is segmental visualization of the inferior vena cava. Hepatic echotexture is within normal limits, no focal hepatic lesion demonstrated. Right lobe of the liver measured 16.2 cm longitudinal. Impression: 1. There is cholelithiasis, reportedly positive sonographic Guzman's sign although no significant gallbladder wall thickening. Common bile duct is dilated about 0.7 cm, suspected choledocholithiasis. FINAL DIAGNOSIS Problems Medical Problems: (1) Biliary colic Status: Acute (2) Choledocholithiasis Status: Acute Brief Hospital Course Ms. Saenz is a 23 old [sex] who presented with [ ] Discharge Medications Current Medications Sodium Chloride 1,000 ml @ 1,000 mls/hr Q1H IV Last administered on 01/30/19 08:49; Start 01/30/19 at 08:23; Stop 01/30/19 at 09:22; Status DC Ondansetron HCl (Zofran) 8 mg 1X ONCE IV Last administered on 01/30/19at 08:50; Start 01/30/19 at 08:30; Stop 01/30/19 at 08:45; Status DC Fentanyl Citrate (Fentanyl 2ml Vial) 50 mcg 1X ONCE IV Last administered on 01/30/19at 08:51; Start 01/30/19 at 08:30; Stop 01/30/19 at 08:45; Status DC Fentanyl Citrate (Fentanyl 2ml Vial) 50 mcg 1X ONCE IV Last administered on 01/30/19at 10:20; Start 01/30/19 at 10:00; Stop 01/30/19 at 10:01; Status DC Sodium Chloride 1,000 ml @ 1,000 mls/hr 1X ONCE IV Last administered on 01/30/19at 10:18; Start 01/30/19 at 10:00; Stop 01/30/19 at 10:59; Status DC Ondansetron HCl (Zofran) 4 mg PRN Q8HRS PRN IV NAUSEA/VOMITING Last administered on 01/30/19at 16:13; Start 01/30/19 at 10:00; Stop 01/30/19 at 16:40; Status DC Fentanyl Citrate (Fentanyl 2ml Vial) 50 mcg PRN Q2HRS PRN IV PAIN Last administered on 01/31/19at 06:30; Start 01/30/19 at 10:00; Stop 01/31/19 at 09:59; Status DC Sodium Chloride 1,000 ml @ 75 mls/hr [id number] IV Last administered on 01/30/19at 12:45; Start 01/30/19 at 09:53; Stop 01/31/19 at 09:52; Status DC Cefazolin Sodium/ Dextrose 50 ml @ 100 mls/hr 1X PREOP IV ; Start 01/30/19 at 11:30; Stop 01/30/19 at 17:00; Status DC Sevoflurane (Ultane) 60 ml STK-MED ONCE IH ; Start 01/30/19 at 12:36; Stop 01/30/19 at 12:37; Status DC Fentanyl Citrate (Fentanyl 2ml Vial) 100 mcg STK-MED ONCE .ROUTE ; Start 01/30/19 at 12:36; Stop 01/30/19 at 12:37; Status DC Midazolam HCl (Versed) 2 mg STK-MED ONCE .ROUTE ; Start 01/30/19 at 12:36; Stop 01/30/19 at 12:37; Status DC Glycopyrrolate (Robinul) 1 mg STK-MED ONCE .ROUTE ; Start 01/30/19 at 12:36; Stop 01/30/19 at 12:37; Status DC Rocuronium Kelly (Zemuron) 50 mg STK-MED ONCE .ROUTE ; Start 01/30/19 at 12:36; Stop 01/30/19 at 12:37; Status DC Propofol 20 ml @ As Directed STK-MED ONCE IV ; Start 01/30/19 at 12:36; Stop 01/30/19 at 12:37; Status DC Ketorolac Tromethamine (Toradol For Or Only) 30 mg STK-MED ONCE INJ ; Start 01/30/19 at 12:36; Stop 01/30/19 at 12:37; Status DC Ondansetron HCl (Zofran) 4 mg STK-MED ONCE .ROUTE ; Start 01/30/19 at 12:36; Stop 01/30/19 at 12:37; Status DC Lidocaine HCl (Lidocaine Pf 2% Vial) 5 ml STK-MED ONCE .ROUTE ; Start 01/30/19 at 12:37; Stop 01/30/19 at 12:38; Status DC Dexamethasone Sodium Phosphate (Decadron) 4 mg STK-MED ONCE .ROUTE ; Start 01/30/19 at 12:43; Stop 01/30/19 at 12:44; Status DC Bupivacaine HCl/ Epinephrine Bitart (Sensorcain-Mpf Epi 0.5%-1:276643) 30 ml STK-MED ONCE .ROUTE Last administered on 01/30/19at 14:34; Start 01/30/19 at 12:51; Stop 01/30/19 at 13:52; Status DC Cellulose (Surgicel Hemostat 2x3) 1 each STK-MED ONCE .ROUTE ; Start 01/30/19 at 12:52; Stop 01/30/19 at 13:52; Status DC Iohexol (Omnipaque 300 Mg/ml) 50 ml STK-MED ONCE .ROUTE Last administered on 01/30/19at 14:34; Start 01/30/19 at 12:52; Stop 01/30/19 at 13:52; Status DC Bisacodyl (Dulcolax Supp) 10 mg STK-MED ONCE .ROUTE Last administered on 01/30/19at 14:34; Start 01/30/19 at 12:52; Stop 01/30/19 at 13:52; Status DC Neostigmine Methylsulfate (Neostigmine Methylsulfate) 5 mg STK-MED ONCE .ROUTE ; Start 01/30/19 at 14:13; Stop 01/30/19 at 14:14; Status DC Phenylephrine HCl (PHENYLEPHRINE in 0.9% NACL PF) 1 mg STK-MED ONCE IV ; Start 01/30/19 at 14:30; Stop 01/30/19 at 14:31; Status DC Esmolol HCl (Brevibloc) 100 mg STK-MED ONCE IVP ; Start 01/30/19 at 14:47; Stop 01/30/19 at 14:48; Status DC Enoxaparin Sodium (Lovenox 40mg Syringe) 40 mg Q24H SQ ; Start 01/31/19 at 08:00 Sodium Chloride (Normal Saline Flush) 3 ml QSHIFT PRN IV AFTER MEDS AND BLOOD DRAWS; Start 01/30/19 at 16:00 Ringer's Solution 1,000 ml @ 100 mls/hr Q10H IV Last administered on 02/01/19at 05:35; Start 01/30/19 at 15:55 Dextrose (Dextrose 50%-Water Syringe) 12.5 gm PRN Q15MIN PRN IV SEE COMMENTS; Start 01/30/19 at 16:00 Acetaminophen/ Hydrocodone Bitart (Lortab 5/325) 1 tab PRN Q4HRS PRN PO MILD PAIN Last administered on 01/31/19at 20:01; Start 01/30/19 at 16:00 Morphine Sulfate (Morphine Sulfate) 1 mg PRN Q1HR PRN IV PAIN Last administered on 02/01/19at 06:45; Start 01/30/19 at 16:00 Docusate Sodium (Colace) 100 mg BID PO Last administered on 01/31/19at 20:05; Start 01/30/19 at 21:00 Ondansetron HCl (Zofran) 4 mg PRN Q6HRS PRN IV NAUESA, 1ST CHOICE; Start 01/30/19 at 16:00 Potassium Chloride (Klor-Con) 40 meq 1X ONCE PO Last administered on 01/31/19at 13:39; Start 01/31/19 at 13:30; Stop 01/31/19 at 13:31; Status DC Cefazolin Sodium/ Dextrose (Ancef 2gm Premix) 2 gm STK-MED ONCE IV ; Start 01/30/19 at 12:00; Stop 02/01/19 at 07:40; Status DC Vital Signs Vital Signs Date Time Temp Pulse Resp B/P (MAP) Pulse Ox O2 Delivery O2 Flow Rate FiO2 02/01/19 11:00 97.9 68 18 104/63 (77) 98 Room Air 97.9 Labs Laboratory Tests Test 01/31/19 08:15 02/01/19 06:27 White Blood Count 8.0 x10^3/uL (4.0-11.0) 8.4 x10^3/uL (4.0-11.0) Red Blood Count 4.27 x10^6/uL (3.50-5.40) 4.17 x10^6/uL (3.50-5.40) Hemoglobin 12.1 g/dL (12.0-15.5) 11.9 g/dL (12.0-15.5) Hematocrit 36.3 % (36.0-47.0) 35.6 % (36.0-47.0) Mean Corpuscular Volume 85 fL (79-100) 85 fL (79-100) Mean Corpuscular Hemoglobin 28 pg (25-35) 29 pg (25-35) Mean Corpuscular Hemoglobin Concent 33 g/dL (31-37) 33 g/dL (31-37) Red Cell Distribution Width 12.9 % (11.5-14.5) 12.5 % (11.5-14.5) Platelet Count 336 x10^3/uL (140-400) 306 x10^3/uL (140-400) Neutrophils (%) (Auto) 63 % (31-73) 52 % (31-73) Lymphocytes (%) (Auto) 30 % (24-48) 38 % (24-48) Monocytes (%) (Auto) 6 % (0-9) 6 % (0-9) Eosinophils (%) (Auto) 1 % (0-3) 4 % (0-3) Basophils (%) (Auto) 1 % (0-3) 1 % (0-3) Neutrophils # (Auto) 5.0 x10^3uL (1.8-7.7) 4.4 x10^3uL (1.8-7.7) Lymphocytes # (Auto) 2.4 x10^3/uL (1.0-4.8) 3.2 x10^3/uL (1.0-4.8) Monocytes # (Auto) 0.5 x10^3/uL (0.0-1.1) 0.5 x10^3/uL (0.0-1.1) Eosinophils # (Auto) 0.1 x10^3/uL (0.0-0.7) 0.3 x10^3/uL (0.0-0.7) Basophils # (Auto) 0.0 x10^3/uL (0.0-0.2) 0.1 x10^3/uL (0.0-0.2) Sodium Level 142 mmol/L (136-145) 138 mmol/L (136-145) Potassium Level 3.4 mmol/L (3.5-5.1) 3.3 mmol/L (3.5-5.1) Chloride Level 106 mmol/L (98-107) 103 mmol/L (98-107) Carbon Dioxide Level 25 mmol/L (21-32) 25 mmol/L (21-32) Anion Gap 11 (6-14) 10 (6-14) Blood Urea Nitrogen 7 mg/dL (7-20) 7 mg/dL (7-20) Creatinine 0.7 mg/dL (0.6-1.0) 0.5 mg/dL (0.6-1.0) Estimated GFR (Cockcroft-Gault) 104.6 154.3 Glucose Level 115 mg/dL (70-99) 96 mg/dL (70-99) Calcium Level 8.9 mg/dL (8.5-10.1) 9.0 mg/dL (8.5-10.1) Total Bilirubin 1.5 mg/dL (0.2-1.0) 0.5 mg/dL (0.2-1.0) Direct Bilirubin 1.1 mg/dL (0.0-0.2) Aspartate Amino Transf (AST/SGOT) 571 U/L (15-37) 186 U/L (15-37) Alanine Aminotransferase (ALT/SGPT) 590 U/L (14-59) 512 U/L (14-59) Alkaline Phosphatase 151 U/L (46-116) 166 U/L (46-116) Total Protein 7.3 g/dL (6.4-8.2) 7.4 g/dL (6.4-8.2) Albumin 3.0 g/dL (3.4-5.0) 3.0 g/dL (3.4-5.0) Amylase Level 42 U/L (25-115) Lipase 117 U/L (73-393) BUN/Creatinine Ratio 14 (6-20) Albumin/Globulin Ratio 0.7 (1.0-1.7) Laboratory Tests Test 02/01/19 06:27 White Blood Count 8.4 x10^3/uL (4.0-11.0) Red Blood Count 4.17 x10^6/uL (3.50-5.40) Hemoglobin 11.9 g/dL (12.0-15.5) Hematocrit 35.6 % (36.0-47.0) Mean Corpuscular Volume 85 fL (79-100) Mean Corpuscular Hemoglobin 29 pg (25-35) Mean Corpuscular Hemoglobin Concent 33 g/dL (31-37) Red Cell Distribution Width 12.5 % (11.5-14.5) Platelet Count 306 x10^3/uL (140-400) Neutrophils (%) (Auto) 52 % (31-73) Lymphocytes (%) (Auto) 38 % (24-48) Monocytes (%) (Auto) 6 % (0-9) Eosinophils (%) (Auto) 4 % (0-3) Basophils (%) (Auto) 1 % (0-3) Neutrophils # (Auto) 4.4 x10^3uL (1.8-7.7) Lymphocytes # (Auto) 3.2 x10^3/uL (1.0-4.8) Monocytes # (Auto) 0.5 x10^3/uL (0.0-1.1) Eosinophils # (Auto) 0.3 x10^3/uL (0.0-0.7) Basophils # (Auto) 0.1 x10^3/uL (0.0-0.2) Sodium Level 138 mmol/L (136-145) Potassium Level 3.3 mmol/L (3.5-5.1) Chloride Level 103 mmol/L (98-107) Carbon Dioxide Level 25 mmol/L (21-32) Anion Gap 10 (6-14) Blood Urea Nitrogen 7 mg/dL (7-20) Creatinine 0.5 mg/dL (0.6-1.0) Estimated GFR (Cockcroft-Gault) 154.3 BUN/Creatinine Ratio 14 (6-20) Glucose Level 96 mg/dL (70-99) Calcium Level 9.0 mg/dL (8.5-10.1) Total Bilirubin 0.5 mg/dL (0.2-1.0) Aspartate Amino Transf (AST/SGOT) 186 U/L (15-37) Alanine Aminotransferase (ALT/SGPT) 512 U/L (14-59) Alkaline Phosphatase 166 U/L (46-116) Total Protein 7.4 g/dL (6.4-8.2) Albumin 3.0 g/dL (3.4-5.0) Albumin/Globulin Ratio 0.7 (1.0-1.7) Allergies Allergies Coded Allergies Type Severity Reaction Last Updated Verified No Known Drug Allergies 01/30/19 No Disposition/Orders: D/C to Home Patient Instructions d/c planning 38 min BEVERLEY DELGADILLO MD Feb 01, 2019 15:25
[2019-02-01] MEDS ORDERED: HYDR-2761 PO (15:27)
[2019-02-01] MEDS ORDERED: DOCU-109 PO (15:27)
--- NOTE | 2019-02-01 15:31 | DISCH ---
DISCHARGE INSTRUCTIONS Condition on Discharge Condition on Discharge: Stable Activity After Discharge Activity Instructions for Disc: Activity as tolerated Lifting Instructions after Dis: No heavy lifting, No pulling or pushing Exercise Instruction after Dis: Walk 10 min, 3 x per day Driving Instructions after Dis: Do not drive today Diet after Discharge Diet after Discharge: Regular Contacting the DR. after DC Call your doctor for: If your condition worsens BEVERLEY DELGADILLO MD Feb 01, 2019 15:31
[2019-02-01] MEDS: HYDROcodone/APAP 5/325MG 1 TAB TABLET PO PRN (16:00)
--- NOTE | 2019-02-01 16:09 | NUR ---
Spoke with EVELIO Pedersen and Dr. Evans (general surg) ok to dc pt from GI and GS standpoint. Pt to f/u with Dr. Evans in 2 weeks.
--- NOTE | 2019-02-01 16:17 | NUR ---
SW following. Discussed with RN, pt is from home. Advancing diet today with possible discharge home with self care. SW met with pt and pt's RN to translate Ukrainian for self pay resources, pt denied any further SW needs.
--- NOTE | 2019-02-01 18:15 | NUR ---
Discharge instructions and prescriptions given to pt. Appt info to f/u with Dr. Evans given to pt, appt on 02/10 at 0915. Answered questions and concerns. Pt dc home accompanied by brother.
--- NOTE | 2019-02-02 17:19 | PATHOLOGY ---
[facility] Accession Number: [id number] . 01 Material submitted: . gallbladder - GALLBLADDER . 01 Clinical history: . Acute cholelithiasis . 02 Diagnosis: Gallbladder, laparoscopic cholecystectomy: - Cholelithiasis. - Acute cholecystitis with increased eosinophils. - Reactive changes of gallbladder neck lymph node. (JPM:[facility] 02/02/2019) QTP/02/02/2019 . 02 Comment: There is no evidence of malignancy. (JPM:[facility] 02/02/2019) . 02 Electronically signed: . Darian Elias MD, Pathologist NPI- [id number] . 01 Gross description: . The specimen is received in formalin labeled "Gabarretecrus, Dadis, gallbladder" and consists of an intact, armstrong-robbins, smooth, shiny, and focally hemorrhagic gallbladder measuring 8.1 cm in length and up to 3.5 cm in diameter. The margin is inked black. Opening reveals a lumen filled with tenacious green bile and multiple smooth to mulberry yellow-green calculi ranging from 0.2-0.8 cm. The mucosa is green-brown and eroded with an average wall thickness of 0.4. The wall is markedly edematous. Located adjacent to the gallbladder neck is a lymph node candidate measuring 1.5 x 0.8 cm. No masses are identified. Grocery Store Manager sections are submitted in A1-A2 (SDY; 02/01/2019) SYU/SYU . 02 Pathologist provided ICD-10: K80.00 . 02 CPT . 567493 Specimen Comment: A courtesy copy of this report has been sent to Specimen Comment: [phone], , . Specimen Comment: Report sent to ,DR HOLLIDAY / DR MALCOLM Performed at: [address] [facility] [address], [place], [place] [id number] MD Patrick Vegas MD Phone: [phone] Performed at: 02 [facility] [place] [address] [place], [place] [id number] MD Darian Elias MD Phone: [phone]
== END 2019-02-01 18:11 | disposition home or self-care (01) | DRG 419 ==
LOC: ER 08:03 → 4 NORTH 09:30
PROVIDERS: ADMIT Internal Medicine; ATTEND Internal Medicine
PROC: 0FC94ZZ Extirpation of Matter from Common Bile Duct, Percutaneous Endoscopic Approach (ICD-10-PCS; 2019-01-30)
PROC: BF101ZZ Fluoroscopy of Bile Ducts using Low Osmolar Contrast (ICD-10-PCS; 2019-01-30)
PROC: 0FT44ZZ Resection of Gallbladder, Percutaneous Endoscopic Approach (ICD-10-PCS; principal; 2019-01-30 13:30)
DX: K80.61 Calculus of gallbladder and bile duct with cholecystitis, unspecified, with obstruction (principal); E87.6 Hypokalemia; K82.8 Other specified diseases of gallbladder; Z79.899 Other long term (current) drug therapy
CPT/HCPCS: 36415; 74300; 76705; 80048; 80053; 80076; 81001; 81025; 82150; 83690; 85025; 88304; 96361; 96374; 96375; 96376; A7015; C1757; C1769; J0696; J1100; J1885; J2001; J2250; J2270; J2370; J2405; J2704; J2710; J3010; J3490; J7030; J7120; Q9967; 97116; 97530; 99285-25